=== PATIENT | female | born 1985 | race Caucasian/White ===

== ENCOUNTER 2017-08-07 21:32 | Observation (INO) ==
--- NOTE | 2017-08-07 22:05 | Emergency Department Note ---
START Narrative - START START: I examined this patient and my medical decision-making was reviewed with the Resident Physician. I agree with the documented findings, disposition and treatment plan as described except to the extent set forth below. 32 year old female presents to us from the for rule out MRSA abscess on her right mosque area. Nancy has essentially failed ouaptient therapy and will need admitted. She is tachycardic. Nancy has one SIRS criteria and likely meets sepsis criteria therefore we will start IVF and ABX and bloodwork
--- NOTE | 2017-08-07 22:12 | Emergency Department Note ---
Disposition Clinical Impression: Periorbital cellulitis of right eye Abscess of skin or subcutaneous tissue Qualifiers: Site of cutaneous abscess: face Qualified Code(s): L02.01 - Cutaneous abscess of face Disposition: Admitted As Inpatient Condition: Good Referrals: NONE,PCP [Primary Care Provider] - Forms: ED Satisfaction Letter Time of Disposition: 00:22 General Adult HPI - General Chief complaint: ED Skin/Abscess/Foreign Body Stated complaint: MRSA on my face Time Seen by Provider: 08/07/17 21:37 Source: patient Mode of arrival: ambulatory Limitations: no limitations Nursing Notes Reviewed: Yes Vital Signs Reviewed: Yes - History of Present Illness HPI Narrative: 32-year-old female presenting to the emergency department with chief complaint of skin infection. Patient was seen at urgent care on Wednesday and diagnosed with a MRSA skin infection and given Keflex. No further workup was completed according to the patient. No wound culture was completed. Patient has not taking the Keflex since then but states it is not getting better and now she has swelling behind her right ear. She states when she woke up this morning her right eye was swollen shut. Patient denies fevers but states she has been feeling overall not well. She has had some nausea today. Patient has never had abscesses or skin infection in the past. Pain Scale: 5 - Related Data Previous Rx's Medication Instructions Recorded Ketoprofen 75 mg PO 1-3XD #30 capsule 06/14/15 Benzonatate [Tessalon] 200 mg PO TID PRN #20 capsule 12/09/16 Ciprofloxacin [Cipro] 500 mg PO BID 7 Days tablet 12/09/16 Ibuprofen [Motrin] 800 mg PO Q8HR PRN #20 tablet 12/09/16 Phenazopyridine HCl [Pyridium] 200 mg PO TID 2 Days tab 12/09/16 Allergies Allergy/AdvReac Type Severity Reaction Status Date / Time sulfamethoxazole Allergy Hives Verified 08/07/17 21:35 [From Bactrim] trimethoprim [From Bactrim] Allergy Hives Verified 08/07/17 21:35 All systems ED: reviewed and negative except as stated. Constitutional: Denies: fever, chills Eyes: Reports: as per HPI ENT ED: Reports: as per HPI Cardiovascular: Denies: chest pain, palpitations Respiratory: Denies: cough, dyspnea, wheezes Gastrointestinal: Reports: nausea. Denies: abdominal pain, vomiting Genitourinary: Reports: as per HPI Musculoskeletal: Reports: as per HPI Integumentary: Reports: other (Quarter-sized fluctuant with mass noted over the right temporal region. No warmth to the area. No crepitus noted.) Neurological: Reports: as per HPI Psychiatric: Reports: as per HPI Endocrine: Reports: as per HPI Hematological/Lymphatic: Reports: as per HPI Allergic/Immunologic: Reports: as per HPI Past Medical History - Past Medical History Attestation: Yes The following information was validated with the patient. Medical history: Reports: no medical history Psychiatric history: Reports: depression - Social History Smoking Status: Current every day smoker Smokeless Tobacco Status: No Alcohol use: Reports: none Drug use: Reports: none, IV Drug Use, other Physical Exam - General General appearance: alert, in no apparent distress - Head Head exam: atraumatic, normocephalic - Eye Eye exam: Present: other (Mild redness and swelling noted around the right eye) - Cardiovascular Cardiovascular exam: Present: normal rhythm, tachycardia, normal heart sounds - Abdominal Exam Abdominal exam: Present: soft, Non-Tender, normal bowel sounds. Absent: distention, guarding, rebound - Extremities Exam Extremities exam: Present: normal inspection, full ROM - Neurological Exam Neurological exam: Present: alert, oriented X3 - Psychiatric Psychiatric exam: Present: normal affect, normal mood - Skin Skin exam: Present: warm, intact Course Course Narrative: 32-year-old female presenting to the emergency department with chief complaint of skin abscess over the right temporal region. Concern for periorbital cellulitis due to swelling and redness. Patient has failed outpatient therapy. We will obtain basic lab work and a sepsis workup along with providing the patient with vancomycin and Zosyn. We will obtain a CT of the area and to determine the extent of the infection. Disposition will be admission upon results. - Reevaluation(s) Reevaluation #1: Patient's lab work and radiology results have been completed. He will now completed bedside I&D of abscess. Vancomycin and Zosyn has been started. Patient's tachycardia is improving in the room. Other vital signs are all stable at this time. We spoke with the hospitalist Dr. Puckett who will accept the patient at this time. He would like us to add a serum test as well. Time: 00:21 Vital Signs Temperature 98.3 F 10/21/17 21:33 Pulse Rate 130 08/07/17 21:33 Respiratory Rate 16 08/07/17 21:33 Blood Pressure 160/93 08/07/17 21:33 O2 Sat by Pulse Oximetry 100 08/07/17 21:33 Temperature 98.3 F 08/07/17 21:33 Pulse Rate 105 08/08/17 00:01 Respiratory Rate 16 08/08/17 00:01 Blood Pressure 130/91 08/08/17 00:01 O2 Sat by Pulse Oximetry 99 08/08/17 00:01 Oxygen Delivery Oxygen Delivery Room Air Medical Decision Making - Lab Data Result diagrams: 08/07/17 22:43 08/07/17 22:43 Lab Results 08/07/17 08/07/17 08/07/17 Range/Units 22:43 22:43 22:43 WBC 8.2 (4.3-11.1) K/mcL RBC 5.11 H (3.82-4.97) M/mcL Hgb 14.2 (11.5-15.4) g/dL Hct 43.4 (35.3-44.9) % MCV 84.9 (83.0-100.0) fL MCH 27.8 L (28.0-33.3) pg MCHC 32.7 (31.6-35.5) g/dL RDW 13.4 (11.5-14.5) % Plt Count 339 (140-400) K/mcL MPV 8.8 L (9.4-12.4) fL Immature Gran % 0.4 (0-4) % Seg Neutrophils % 61.9 % Lymphocytes % 23.5 % Monocytes % 11.3 % Eosinophils % 1.8 % Basophils % 1.1 % Neutrophils # 5.1 (1.6-8.9) K/mcL Lymphocytes # 1.9 (0.6-4.6) K/mcL Monocytes # 0.9 (0.0-1.3) K/mcL Eosinophils # 0.2 (0.0-0.6) K/mcL Basophils # 0.1 (0.0-0.2) K/mcL ESR (0-15) mm/hr Sodium 139 (136-145) mEq/L Potassium 5.2 H (3.5-4.5) mEq/L Chloride 106 (98-109) mEq/L Carbon Dioxide 24 (19-29) mEq/L BUN 12 (7-20) mg/dL Creatinine 1.19 H (0.57-1.11) mg/dL Est GFR ( Amer) > 60 (> 60) Est GFR (Non-Af Amer) 53 L (> 60) BUN/Creatinine Ratio 10 (6-26) Glucose 100 H (70-99) mg/dL Calculated Osmolality 288 (280-300) Lactic Acid 2.0 (0.5-2.2) mmol/L Calcium 9.5 (8.6-10.8) mg/dL Total Bilirubin 0.8 (0.2-1.2) mg/dL Direct Bilirubin 0.3 (0.0-0.5) mg/dL Indirect Bilirubin 0.5 (0.0-1.2) mg/dL AST 52 H (5-34) Units/L ALT 76 H (0-55) Units/L Alkaline Phosphatase 82 (38-126) Units/L C-Reactive Protein 8 H (Less than 5) mg/L Serum Total Protein 9.0 H (6.0-8.3) g/dL Albumin 3.6 (3.5-5.0) g/dL Globulin 5.4 H (2.4-3.5) g/dL Albumin/Globulin Ratio 0.7 L (1.1-2.2) 08/07/17 Range/Units 22:43 WBC (4.3-11.1) K/mcL RBC (3.82-4.97) M/mcL Hgb (11.5-15.4) g/dL Hct (35.3-44.9) % MCV (83.0-100.0) fL MCH (28.0-33.3) pg MCHC (31.6-35.5) g/dL RDW (11.5-14.5) % Plt Count (140-400) K/mcL MPV (9.4-12.4) fL Immature Gran % (0-4) % Seg Neutrophils % % Lymphocytes % % Monocytes % % Eosinophils % % Basophils % % Neutrophils # (1.6-8.9) K/mcL Lymphocytes # (0.6-4.6) K/mcL Monocytes # (0.0-1.3) K/mcL Eosinophils # (0.0-0.6) K/mcL Basophils # (0.0-0.2) K/mcL ESR 64 H (0-15) mm/hr Sodium (136-145) mEq/L Potassium (3.5-4.5) mEq/L Chloride (98-109) mEq/L Carbon Dioxide (19-29) mEq/L BUN (7-20) mg/dL Creatinine (0.57-1.11) mg/dL Est GFR ( Amer) (> 60) Est GFR (Non-Af Amer) (> 60) BUN/Creatinine Ratio (6-26) Glucose (70-99) mg/dL Calculated Osmolality (280-300) Lactic Acid (0.5-2.2) mmol/L Calcium (8.6-10.8) mg/dL Total Bilirubin (0.2-1.2) mg/dL Direct Bilirubin (0.0-0.5) mg/dL Indirect Bilirubin (0.0-1.2) mg/dL AST (5-34) Units/L ALT (0-55) Units/L Alkaline Phosphatase (38-126) Units/L C-Reactive Protein (Less than 5) mg/L Serum Total Protein (6.0-8.3) g/dL Albumin (3.5-5.0) g/dL Globulin (2.4-3.5) g/dL Albumin/Globulin Ratio (1.1-2.2)
[2017-08-07] MEDS: Piperacillin/Tazobactam 3.375 GM in D5% in Water (Mini-Bag+) 100 ML IVPB ONE ×2 (22:16→22:48)
[2017-08-07] MEDS: 0.9 % Sodium Chloride 1,000 ML IVC ONE ×2 (22:17→22:48)
[2017-08-07] MEDS: Vancomycin 1,500 MG in D5% in Water 250 ML IVPB ONE ×2 (22:17→22:48)
[2017-08-07 22:58] LABS: Basophils # 0.1 K/mcL (0.0-0.2); Basophils % 1.1 %; Eosinophils # 0.2 K/mcL (0.0-0.6); Eosinophils % 1.8 %; Hematocrit 43.4 % (35.3-44.9); Hemoglobin 14.2 g/dL (11.5-15.4); Immature Granulocytes % 0.4 % (0-4); Lymphocytes # 1.9 K/mcL (0.6-4.6); Lymphocytes % 23.5 %; Mean Corpuscular HGB Conc 32.7 g/dL (31.6-35.5); Mean Corpuscular Hemoglobin 27.8 pg (28.0-33.3); Mean Corpuscular Volume 84.9 fL (83.0-100.0); Mean Platelet Volume 8.8 fL (9.4-12.4); Monocytes # 0.9 K/mcL (0.0-1.3); Monocytes % 11.3 %; Neutrophils # 5.1 K/mcL (1.6-8.9); Platelet Count 339 K/mcL (140-400); Red Blood Count 5.11 M/mcL (3.82-4.97); Red Cell Distribution Width 13.4 % (11.5-14.5); Segmented Neutrophils % 61.9 %
[2017-08-07] MEDS ORDERED: Nicotine 7 MG PATCH.TD24 TD STA (22:58)
[2017-08-07 23:12] LABS: Alanine Aminotransferase 76 Units/L (0-55); Albumin 3.6 g/dL (3.5-5.0); Albumin/Globulin Ratio 0.7 (1.1-2.2); Alkaline Phosphatase 82 Units/L (38-126); Aspartate Amino Transferase 52 Units/L (5-34); BUN/Creatinine Ratio 10 (6-26); Bilirubin,Direct 0.3 mg/dL (0.0-0.5); Bilirubin,Indirect 0.5 mg/dL (0.0-1.2); Bilirubin,Total 0.8 mg/dL (0.2-1.2); Blood Urea Nitrogen 12 mg/dL (7-20); Calcium 9.5 mg/dL (8.6-10.8); Carbon Dioxide 24 mEq/L (19-29); Chloride 106 mEq/L (98-109); Globulin 5.4 g/dL (2.4-3.5); Glucose 100 mg/dL (70-99); Osmolality,Calculated 288 (280-300); Sodium 139 mEq/L (136-145); eGFR For African Americans > 60 (> 60); eGFR For Non-African Americans 53 (> 60)
[2017-08-07 23:13] LABS: Potassium 5.2 mEq/L (3.5-4.5)
[2017-08-07 23:31] LABS: C-Reactive Protein 8 mg/L (Less than 5)
[2017-08-08] MEDS ORDERED: Lidocaine -MPF 1% 2 ML VIAL INFILT ONE (00:05)
[2017-08-08] MEDS ORDERED: *HR* Morphine 2 MG/ML SYRINGE IVP ONE (00:18)
--- NOTE | 2017-08-08 00:31 | Internal Med History&Physical ---
<Jesús Salmon - Last Filed: 08/08/17 02:19> Date of Encounter: 08/08/17 Time of Encounter: 00:31 Assessment and Plan (1) Abscess of skin or subcutaneous tissue Current visit: Yes Status: Acute CT face revealed superficial subcutaneous abscess with surrounding cellulitis overlying the right temporalis fossa. Patient s/p bedside I&D in the ED Blood and wound cultures pending Started on empiric Vanc and Zosyn (Patient is allergic to Bactrim) De-escalate antibiotics once cultures resulted Contact precautions Ibuprofen/ Tylenol prn Qualifiers: Site of cutaneous abscess: face Qualified Code(s): L02.01 - Cutaneous abscess of face (2) Periorbital cellulitis of right eye Current visit: Yes Status: Acute Afebrile, no leukocytosis, no vision changes ESR 64, CRP 8, Lactic acid 2.0, repeat lactic acid pending Continue antibiotics Continue to monitor (3) Hyperkalemia Current visit: Yes Status: Acute K 5.2 Continue to monitor (4) Tobacco dependence Current visit: Yes Status: Chronic Tobacco cessation discussed Nicotine patch ordered (5) Hepatitis C Current visit: No Status: Chronic Hep c secondary to remote IVDU Mildly elevated LFTs Continue to monitor Qualifiers: Viral hepatitis chronicity: chronic Hepatic coma status: without hepatic coma Qualified Code(s): B18.2 - Chronic viral hepatitis C (6) Obesity (BMI 30-39.9) Current visit: Yes Status: Chronic Discussed diet modification and exercise (7) DVT prophylaxis Current visit: Yes Status: Acute SCDs, encourage ambulation Internal Medicine - H&P: HPI Chief complaint: Skin infection Admitted From: Home Plans for Post Hospital Care: Home History of present illness: Ms. Davalos is a 32 year old female with a PMH of Hepatitis C, tobacco dependence, and remote IVDU that presented after she was evaluated at an urgent care center 5 days ago for a skin infection on her face that has been getting worse despite taking Cipro 500mg PO TID for the past 3 days. She reports trying to "pop the zit" a few days ago without much relief. She reports waking up this morning with swelling behind her right ear and her right eye swollen shut. She reports associated subjective fevers, facial pain, ear feeling plugged, nausea, fatigue, and family member with recurrent staph infections. She has been using Ibuprofen and ice packs at home with considerable decrease in swelling. Patient denies vision changes, chills, CP, SOB, abd pain, weight loss or gain, difficulty chewing, ingrown hairs, animal bites, or prior abscesses/ skin infection in the past. In the ED, CT face revealed superficial subcutaneous abscess with surrounding cellulitis overlying the right temporalis fossa. Patient underwent bedside I&D of abscess and was started on empiric Vamc and Zosyn. Wound cultures collected. Past Med Surg Social Fam HX - Past Medical History Medical history: other (Hepatitis C, tobacco dependence) Psychiatric history: depression - Past Surgical History Surgical History: other (Rhinoplasty, tonsillectomy, hand) - Social History Smoking Status: Current every day smoker Smokeless Tobacco Status: No Alcohol use: none Drug use: none, IV Drug Use (remote), other Current living situation: Home, With Family Activity Level: Independent ambulation Recent Out of Country Travel Within the Last 8 Weeks: No Exposure or Possible Exposure to Illness During Travel: No - Family History Grandmother Hx Family Cardiac Disorders: Yes Hx Family Endocrine Disorder: Yes (DM) Grandfather Hx Family Cardiac Disorders: Yes Hx Family Endocrine Disorder: Yes (DM) Internal Medicine - H&P: Meds Ketoprofen 75 mg PO 1-3XD #30 capsule 06/14/15 [Rx] Benzonatate [Tessalon] 200 mg PO TID PRN #20 capsule 12/09/16 [Rx] Ciprofloxacin [Cipro] 500 mg PO BID 7 Days tablet 12/09/16 [Rx] Ibuprofen [Motrin] 800 mg PO Q8HR PRN #20 tablet 12/09/16 [Rx] Phenazopyridine HCl [Pyridium] 200 mg PO TID 2 Days tab 12/09/16 [Rx] 3 Allergy/AdvReac Type Severity Reaction Status Date / Time sulfamethoxazole Allergy Hives Verified 08/07/17 21:35 [From Bactrim] trimethoprim [From Bactrim] Allergy Hives Verified 08/07/17 21:35 All Systems PM: A 10-system review of systems was performed and is negative for pertinent findings except as documented above in the HPI. - Constitutional Constitutional: fatigue, fever(s), no anorexia, no chills, no weight gain, no weight loss - EENT Eyes: irritation, no blurry vision, no change in vision, no diplopia, no discharge, no loss of vision, no photophobia, no spots in vision, no other visual disturbances Nose, mouth and throat: facial pain, no dental pain, no mouth lesions, no nasal congestion, no neck pain, no post-nasal drip, no sinus pressure, no sore throat - Cardiovascular Cardiovascular ROS IM: palpitations, no chest pain - Respiratory Respiratory: no cough, no dyspnea, no excessive phlegm production, no change in phlegm color - Gastrointestinal Gastrointestinal: nausea, no abdominal pain, no constipation, no diarrhea, no vomiting - Genitourinary Genitourinary: no dysuria, no urinary frequency, no urinary urgency Menstruation: menses 8 or > days - Musculoskeletal Musculoskeletal ROS IM: myalgias, no back pain, no numbness, no tingling - Integumentary Integumentary IM: erythema, new lesions, non-healing lesions, rash, sores - Neurological Neurological ROS: no confusion, no loss of vision, no numbness, no weakness - Psychiatric Psychiatric: anxiety, no depression - Endocrine Endocrine IM: no polydipsia, no polyphagia, no polyuria - Constitutional Vitals: Temp Pulse Resp BP Pulse Ox 98.3 F 105 16 130/91 99 08/07/17 21:33 08/08/17 00:01 08/08/17 00:01 08/08/17 00:01 08/08/17 00:01 General appearance: Present: cooperative, A&O X 3, pleasant, obese, answers questions appropriately - Head Head exam: Present: normocephalic - Expanded Head Exam Head exam expanded: Present: abrasion (1cm incision right faith at hairline with quarter-sized surounding erythema and right post-auricular lymphadenopathy) , laceration, tenderness of temporal artery - Eye Eye exam: Present: EOMI, periorbital swelling (mild), periorbital tenderness, PERRL, conjuntiva pink, sclera anicteric. Absent: conjunctival injection - ENT ENT exam: Present: mucous membranes moist, normal oropharynx - Expanded ENT Exam Ear exam: Absent: external canal tenderness - Neck Neck exam general surgery: Present: full ROM, lymphadenopathy (post auricular lymphadenopathy), supple, trachea midline. Absent: tenderness - Respiratory Respiratory exam: Present: CTAB. Absent: wheezes - Cardiovascular Cardiovascular exam: Present: +S1, +S2, tachycardia - GI/Abdominal GI/Abdominal exam: Present: normal bowel sounds, soft. Absent: guarding, rebound, tenderness - Extremities Exam Extremities exam: Present: normal capillary refill, normal inspection, warm. Absent: pedal edema - Incison Incision: Present: red, intact, erythema, serosanguinous, approximated. Absent : purulent - Back Exam Back exam: Present: normal inspection. Absent: paraspinal tenderness, tenderness - Neurological Exam Neurological exam: Present: alert, oriented X3, no focal deficits. Absent: motor sensory deficit, speech deficit - Psychiatric Psychiatric exam: Present: normal affect, normal mood - Skin Skin exam: Present: erythema (1cm incision right faith at hairline with quarter -sized surounding erythema and right post-auricular lymphadenopathy) Internal Med - H&P Results - Labs CBC & Chem 7: 08/07/17 22:43 08/07/17 22:43 - Impressions Impressions Face CT 08/07/17 21:54 IMPRESSION: Superficial subcutaneous abscess with surrounding cellulitis overlying the right temporalis fossa. No radiopaque foreign body. D/ / Frankie Johnson MD / Frankie Johnson MD Interpreting Provider: Frankie Johnson MD <Irving Puckett - Last Filed: 08/08/17 02:43> Date of Encounter: 08/08/17 Internal Medicine - H&P: HPI History of present illness: Ms. Davalos is a 32 year old female All Systems PM: A 10-system review of systems was performed and is negative for pertinent findings except as documented above in the HPI. - Constitutional Vitals: Temp Pulse Resp BP Pulse Ox 98.4 F 96 16 150/103 100 08/08/17 01:00 08/08/17 01:00 08/08/17 01:00 08/08/17 01:00 08/08/17 01:00 Internal Med - H&P Results - Labs CBC & Chem 7: 08/08/17 02:20 08/07/17 22:43 Labs: Short CBC 08/08/17 Range/Units 02:20 WBC 7.8 (4.3-11.1) K/mcL Hgb 12.9 (11.5-15.4) g/dL Hct 38.8 (35.3-44.9) % Plt Count 285 (140-400) K/mcL Neutrophils # 4.5 (1.6-8.9) K/mcL - Attending Attestation I have seen and examined the patient independently. I have discussed with resident Dr Salmon regarding the management plan. Agree with the documentation. Patient admitted for abscess/cellulitis on the right temporal area. Failed outpatient treatment. I/D has been done in ER. We will continue IV antibiotic and a follow-up blood and wound culture.
[2017-08-08 01:01] VITALS: BP 150/103
[2017-08-08] MEDS ORDERED: Acetaminophen 325 MG TABLET PO PRN (01:17)
[2017-08-08] MEDS ORDERED: Naloxone 0.4 MG/ML INJ IVP PRN (01:17)
[2017-08-08] MEDS ORDERED: Ondansetron 4 MG/2 ML VIAL IVP PRN (01:17)
[2017-08-08] MEDS ORDERED: 0.9 % Sodium Chloride 1,000 ML IVC SCH (01:30)
[2017-08-08] MEDS ORDERED: Vancomycin (wt based) 1,000 MG VIAL IVPB SCH (02:00)
[2017-08-08 02:27] LABS: Basophils # 0.1 K/mcL (0.0-0.2); Basophils % 1.2 %; Eosinophils # 0.2 K/mcL (0.0-0.6); Eosinophils % 2.1 %; Hematocrit 38.8 % (35.3-44.9); Hemoglobin 12.9 g/dL (11.5-15.4); Immature Granulocytes % 0.4 % (0-4); Lymphocytes # 2.1 K/mcL (0.6-4.6); Lymphocytes % 26.9 %; Mean Corpuscular HGB Conc 33.2 g/dL (31.6-35.5); Mean Corpuscular Volume 84.2 fL (83.0-100.0); Mean Platelet Volume 8.7 fL (9.4-12.4); Monocytes # 0.9 K/mcL (0.0-1.3); Monocytes % 11.8 %; Neutrophils # 4.5 K/mcL (1.6-8.9); Platelet Count 285 K/mcL (140-400); Red Blood Count 4.61 M/mcL (3.82-4.97); Red Cell Distribution Width 13.3 % (11.5-14.5); Segmented Neutrophils % 57.6 %
[2017-08-08 02:40] LABS: Alanine Aminotransferase 65 Units/L (0-55); Albumin 3.2 g/dL (3.5-5.0); Albumin/Globulin Ratio 0.7 (1.1-2.2); Alkaline Phosphatase 73 Units/L (38-126); Aspartate Amino Transferase 39 Units/L (5-34); BUN/Creatinine Ratio 11 (6-26); Bilirubin,Total 0.7 mg/dL (0.2-1.2); Blood Urea Nitrogen 11 mg/dL (7-20); Calcium 8.8 mg/dL (8.6-10.8); Carbon Dioxide 24 mEq/L (19-29); Chloride 109 mEq/L (98-109); Globulin 4.4 g/dL (2.4-3.5); Glucose 96 mg/dL (70-99); Osmolality,Calculated 287 (280-300); Sodium 139 mEq/L (136-145); Total Protein 7.6 g/dL (6.0-8.3); eGFR For African Americans > 60 (> 60); eGFR For Non-African Americans > 60 (> 60)
[2017-08-08] MEDS ORDERED: Aminoglycoside Consult 1 EACH MC ONE (04:28)
--- NOTE | 2017-08-08 05:05 | Discharge Summary ---
Date of Encounter: 08/08/17 Time of Encounter: 04:20 - Discharge Diagnosis (1) Abscess of skin or subcutaneous tissue Priority: Primary Status: Acute Qualifiers: Site of cutaneous abscess: face Qualified Code(s): L02.01 - Cutaneous abscess of face (2) Periorbital cellulitis of right eye Priority: Primary Status: Acute (3) Hyperkalemia Priority: Primary Status: Acute (4) Tobacco dependence Priority: Secondary Status: Chronic (5) Hepatitis C Priority: Secondary Status: Chronic Qualifiers: Viral hepatitis chronicity: chronic Hepatic coma status: without hepatic coma Qualified Code(s): B18.2 - Chronic viral hepatitis C (6) Obesity (BMI 30-39.9) Priority: Secondary Status: Chronic (7) DVT prophylaxis Priority: Primary Status: Acute - Discharge Medications Home Medications: Ketoprofen 75 mg PO 1-3XD #30 capsule 06/14/15 [Rx] Benzonatate [Tessalon] 200 mg PO TID PRN #20 capsule 12/09/16 [Rx] Ciprofloxacin [Cipro] 500 mg PO BID 7 Days tablet 12/09/16 [Rx] Ibuprofen [Motrin] 800 mg PO Q8HR PRN #20 tablet 12/09/16 [Rx] Phenazopyridine HCl [Pyridium] 200 mg PO TID 2 Days tab 12/09/16 [Rx] Allergies/Adverse Reactions: 3 Allergy/AdvReac Type Severity Reaction Status Date / Time sulfamethoxazole Allergy Hives Verified 08/07/17 21:35 [From Bactrim] trimethoprim [From Bactrim] Allergy Hives Verified 08/07/17 21:35 Date of admission: 08/08/17 00:27 Primary care physician: PCP NONE Discharging clinician: Jesús Salmon Anticipated date of discharge: 08/08/17 - Patient Status Disposition: Left Against Medical Advice Condition: Fair Functional capacity at discharge: independent ambulation Overall status at discharge: patient is not back to baseline - Discharge Instructions Follow Up With: NONE,PCP [Primary Care Provider] - - Diet and Activity Diet: regular diet Hospital course: Ms. Davalos is a 32 year old female with a PMH of Hepatitis C, tobacco dependence, and remote IVDU that presented after she was evaluated at an urgent care center 5 days ago for a skin infection on her face that has been getting worse despite taking Cipro 500mg PO TID for the past 3 days. She reports trying to "pop the zit" a few days ago without much relief. She reports waking up this morning with swelling behind her right ear and her right eye swollen shut. She reports associated subjective fevers, facial pain, ear feeling plugged, nausea, fatigue, and family member with recurrent staph infections. She has been using Ibuprofen and ice packs at home with considerable decrease in swelling. Patient denies vision changes, chills, CP, SOB, abd pain, weight loss or gain, difficulty chewing, ingrown hairs, animal bites, or prior abscesses/ skin infection in the past. In the ED, CT face revealed superficial subcutaneous abscess with surrounding cellulitis overlying the right temporalis fossa. Patient underwent bedside I&D of abscess and was started on empiric Vamc and Zosyn. Wound and blood cultures were collected. Patient left AMA shortly after admission due to family emergency stating "my old man got locked up". Risks of acutely worsening due to location of cellulitis, potential loss of eye sight, and potential without proper treatment and antibiotics were discussed with the patient. Patient understood and voiced understanding. She signed out AMA shortly thereafter. Time spent discussing smoking cessation with patient: 3 to 10 minutes - Time Spent with Patient Total time spent providing and/or coordinating discharge services: Less than 30 minutes - Constitutional Vitals: Temp Pulse Resp BP Pulse Ox 98.4 F 96 16 150/103 100 08/08/17 01:00 08/08/17 01:00 08/08/17 01:00 08/08/17 01:00 08/08/17 01:00 Exam: General appearance: Present: cooperative, A&O X 3, pleasant, obese, answers questions appropriately - Head Head exam: Present: normocephalic - Expanded Head Exam Head exam expanded: Present: abrasion (1cm incision right taoism at hairline with quarter-sized surounding erythema and right post-auricular lymphadenopathy) , laceration, tenderness of temporal artery - Eye Eye exam: Present: EOMI, periorbital swelling (mild), periorbital tenderness, PERRL, conjuntiva pink, sclera anicteric. Absent: conjunctival injection - ENT ENT exam: Present: mucous membranes moist, normal oropharynx - Expanded ENT Exam Ear exam: Absent: external canal tenderness - Neck Neck exam general surgery: Present: full ROM, lymphadenopathy (post auricular lymphadenopathy), supple, trachea midline. Absent: tenderness - Respiratory Respiratory exam: Present: CTAB. Absent: wheezes - Cardiovascular Cardiovascular exam: Present: +S1, +S2, tachycardia - GI/Abdominal GI/Abdominal exam: Present: normal bowel sounds, soft. Absent: guarding, rebound, tenderness - Extremities Exam Extremities exam: Present: normal capillary refill, normal inspection, warm. Absent: pedal edema - Incison Incision: Present: red, intact, erythema, serosanguinous, approximated. Absent : purulent - Back Exam Back exam: Present: normal inspection. Absent: paraspinal tenderness, tenderness - Neurological Exam Neurological exam: Present: alert, oriented X3, no focal deficits. Absent: motor sensory deficit, speech deficit - Psychiatric Psychiatric exam: Present: normal affect, normal mood - Skin Skin exam: Present: erythema (1cm incision right taoism at hairline with quarter -sized surounding erythema and right post-auricular lymphadenopathy)
[2017-08-08] MEDS ORDERED: Famotidine 20 MG/2 ML VIAL IVP SCH (06:00)
[2017-08-08] MEDS ORDERED: Ibuprofen 400 MG TABLET PO SCH (06:00)
[2017-08-08] MEDS ORDERED: Piperacillin/Tazobactam 3.375 GM in D5% in Water (Mini-Bag+) 100 ML IVPB SCH (08:00)
[2017-08-08] MEDS ORDERED: Nicotine 7 MG PATCH.TD24 TD SCH (09:00)
[2017-08-08] MEDS ORDERED: Vancomycin 1,500 MG in D5% in Water 250 ML IVPB SCH (11:00)
[2017-08-08] MEDS ORDERED: Vancomycin 1,000 MG in D5% in Water 250 ML IVPB SCH (23:00)
--- NOTE | 2017-08-11 10:55 | Event Note ---
Date of Encounter: 08/10/17 Time of Encounter: 18:00 Spoke to patient concerning culture results, positive for MRSA. She had left AMA and was not on any ATB. She agreed to treatment and requested [facility] . I attempted to call prescription for Doxycycline (which is sensitive) to [facility] however was closed. I did call prescription on 08/11/2017 at 10: 30 am .
== END 2017-08-08 04:29 | disposition left against medical advice (07) ==
LOC: EMEROO 21:32 → 3ANU 21:32
PROVIDERS: ADMIT Internal Medicine; ATTEND Internal Medicine

== ENCOUNTER 2018-07-13 12:26 | Inpatient (IN) ==
[2018-07-13] MEDS ORDERED: Isovue-370 500 ML INFUS..BTL IV ONE (13:08)
[2018-07-13] MEDS ORDERED: Clindamycin 600 MG/50 ML 600 MG/50 ML IV.SOLN IVPB ONE (13:10)
[2018-07-13] MEDS ORDERED: Piperacillin/Tazobactam 3.375 GM in 0.9 % Sodium Chloride Mini Bag 100 ML IVPB ONE (13:10)
[2018-07-13] MEDS ORDERED: Clindamycin 300 MG in D5% in Water 50 ML IVPB ONE ×2 (13:11→14:15)
[2018-07-13] MEDS ORDERED: Ketorolac 30 MG/ML VIAL IVP ONE (13:12)
[2018-07-13] MEDS: 0.9 % Sodium Chloride 1,000 ML IVC SCH ×4 (13:24→23:20)
[2018-07-13] MEDS ORDERED: Clindamycin 300 MG/50 ML 300 MG/50 ML IV.SOLN IVPB ONE (14:00)
--- NOTE | 2018-07-13 14:16 | Emergency Department Note ---
Disposition Clinical Impression: Abscess Disposition: Admitted As Inpatient Condition: Fair General Adult HPI - General Chief complaint: ED Wound/Laceration Stated complaint: Left leg spider bite Time Seen by Provider: 07/13/18 12:37 Source: patient Limitations: no limitations Nursing Notes Reviewed: Yes Vital Signs Reviewed: Yes - History of Present Illness HPI Narrative: This is a 33-year-old female with a history of IV drug abuse who presents with concern for an abscess with a necrotic center on the left eye. She has no fever or chills but is significantly tachycardic at triage. She admits that she is currently on methadone. She admits that she had a similar finding on an area below the left knee But the area that she has now started 3 days ago and is progressively worsened. She is mostly concerned that the rapid proliferation of the induration. There is no crepitus on exam on arrival. General: No acute distress HEENT: Pupils equal and reactive to light, extraoccular muscle movement is normal, TMS are clear bilaterally. Heart: RRR, No murmor rub or gallop Lungs: lungs clear, no wheezing, rales or ronchi. ABD: SNT, no focal areas or tenderness, no guarding or rebound tenderness. Extremities: There is significant induration necrotic lesion over the left thigh without findings of crepitus. Neuro: CN 2-12 in tact, no focal deficit. strength 5/5. Medical decision making Findings consistent with abscess to the left lower extremity. We will not emergently consult surgery for possible debridement as this could represent early abscess. There is no actual findings of abscess on advanced imaging at this time. White blood cell count is mildly elevated at 12,000. CT scan shows no discernible abscess. The patient does have elevated reactive markers including sedimentation rate and CRP. Pñea start broad-spectrum antibiotics including vancomycin, clindamycin, Zosyn. Cultures were sent. The patient be admitted for further management. The patient did have significant tachycardia which improved with IV fluids. I spent greater than 35 minutes of critical care time resuscitating this acutely ill patient suffering from sepsis. This was excluding billable procedures. A 12 point review systems is completed. Pertinent positives are discussed in history of present illness. Pain Scale: 5 - Related Data Allergies Allergy/AdvReac Type Severity Reaction Status Date / Time sulfamethoxazole Allergy Hives Verified 01/05/18 22:01 [From Bactrim] trimethoprim [From Bactrim] Allergy Hives Verified 01/05/18 22:01 Past Medical History - Past Medical History Medical history: Reports: no medical history Surgical history: Reports: other (Rhinoplasty, tonsillectomy, hand) Psychiatric history: Reports: depression - Social History Smoking Status: Current every day smoker Smokeless Tobacco Status: No Alcohol use: Reports: none Drug use: Reports: none, IV Drug Use, other Physical Exam - General Limitations: no limitations General appearance: alert, in no apparent distress Course Vital Signs Temperature 99.5 F 07/13/18 12:40 Pulse Rate 151 07/13/18 12:40 Respiratory Rate 18 07/13/18 12:40 Blood Pressure 132/76 07/13/18 12:40 O2 Sat by Pulse Oximetry 96 07/13/18 12:40 Temperature 99.5 F 07/13/18 12:40 Pulse Rate 96 07/13/18 16:19 Respiratory Rate 18 07/13/18 16:19 Blood Pressure 106/82 07/13/18 16:19 O2 Sat by Pulse Oximetry 99 07/13/18 16:19 Oxygen Delivery Oxygen Delivery Room Air Medical Decision Making - MDM Narrative Medical decision making narrative: ekg shows sinus tachycardia, normal axis, normal intervals, abnormal ECG with tachycardia - Lab Data Result diagrams: 07/13/18 15:59 07/13/18 12:56 Lab Results 07/13/18 07/13/18 07/13/18 Range/Units 12:56 12:56 12:56 WBC (4.3-11.1) K/mcL RBC (3.82-4.97) M/mcL Hgb (11.5-15.4) g/dL Hct (35.3-44.9) % MCV (83.0-100.0) fL MCH (28.0-33.3) pg MCHC (31.6-35.5) g/dL RDW (11.5-14.5) % Plt Count (140-400) K/mcL MPV (9.4-12.4) fL Immature Gran % (0-4) % Seg Neutrophils % % Lymphocytes % % Monocytes % % Eosinophils % % Basophils % % Neutrophils # (1.6-8.9) K/mcL Lymphocytes # (0.6-4.6) K/mcL Monocytes # (0.0-1.3) K/mcL Eosinophils # (0.0-0.6) K/mcL Basophils # (0.0-0.2) K/mcL ESR 98 H (0-15) mm/hr Sodium Cancelled Potassium Cancelled Chloride Cancelled Carbon Dioxide Cancelled BUN Cancelled Creatinine Cancelled Est GFR ( Amer) Cancelled Est GFR (Non-Af Amer) Cancelled BUN/Creatinine Ratio Cancelled Glucose Cancelled Calculated Osmolality Cancelled Lactic Acid (0.5-2.2) mmol/L Calcium Cancelled Total Bilirubin Cancelled AST Cancelled ALT Cancelled Alkaline Phosphatase Cancelled C-Reactive Protein 100 H (Less than 10) mg/L Serum Total Protein Cancelled Albumin Cancelled Globulin Cancelled Albumin/Globulin Ratio Cancelled Specimen Rejected Hemolyzed 07/13/18 07/13/18 07/13/18 Range/Units 12:56 14:03 15:59 WBC 12.1 H (4.3-11.1) K/mcL RBC 4.04 (3.82-4.97) M/mcL Hgb 11.2 L (11.5-15.4) g/dL Hct 33.7 L (35.3-44.9) % MCV 83.4 (83.0-100.0) fL MCH 27.7 L (28.0-33.3) pg MCHC 33.2 (31.6-35.5) g/dL RDW 13.2 (11.5-14.5) % Plt Count 230 (140-400) K/mcL MPV 9.0 L (9.4-12.4) fL Immature Gran % 0.5 (0-4) % Seg Neutrophils % 71.9 % Lymphocytes % 16.3 % Monocytes % 9.5 % Eosinophils % 1.1 % Basophils % 0.7 % Neutrophils # 8.7 (1.6-8.9) K/mcL Lymphocytes # 2.0 (0.6-4.6) K/mcL Monocytes # 1.2 (0.0-1.3) K/mcL Eosinophils # 0.1 (0.0-0.6) K/mcL Basophils # 0.1 (0.0-0.2) K/mcL ESR (0-15) mm/hr Sodium 129 L Potassium 4.3 Chloride 99 Carbon Dioxide 21 L BUN 19 Creatinine 1.16 Est GFR ( Amer) > 60 Est GFR (Non-Af Amer) 54 L BUN/Creatinine Ratio 16 Glucose 130 H Calculated Osmolality 272 L Lactic Acid 0.6 (0.5-2.2) mmol/L Calcium 9.3 Total Bilirubin 0.9 AST 50 H ALT 60 H Alkaline Phosphatase 132 H C-Reactive Protein (Less than 10) mg/L Serum Total Protein 8.4 Albumin 3.8 Globulin 4.6 H Albumin/Globulin Ratio 0.8 L Specimen Rejected 07/13/18 Range/Units 16:17 WBC (4.3-11.1) K/mcL RBC (3.82-4.97) M/mcL Hgb (11.5-15.4) g/dL Hct (35.3-44.9) % MCV (83.0-100.0) fL MCH (28.0-33.3) pg MCHC (31.6-35.5) g/dL RDW (11.5-14.5) % Plt Count (140-400) K/mcL MPV (9.4-12.4) fL Immature Gran % (0-4) % Seg Neutrophils % % Lymphocytes % % Monocytes % % Eosinophils % % Basophils % % Neutrophils # (1.6-8.9) K/mcL Lymphocytes # (0.6-4.6) K/mcL Monocytes # (0.0-1.3) K/mcL Eosinophils # (0.0-0.6) K/mcL Basophils # (0.0-0.2) K/mcL ESR (0-15) mm/hr Sodium Potassium Chloride Carbon Dioxide BUN Creatinine Est GFR ( Amer) Est GFR (Non-Af Amer) BUN/Creatinine Ratio Glucose Calculated Osmolality Lactic Acid (0.5-2.2) mmol/L Calcium Total Bilirubin AST ALT Alkaline Phosphatase C-Reactive Protein (Less than 10) mg/L Serum Total Protein Albumin Globulin Albumin/Globulin Ratio Specimen Rejected Hemolyzed
[2018-07-13 16:24] LABS: Basophils # 0.1 K/mcL (0.0-0.2); Basophils % 0.7 %; Eosinophils # 0.1 K/mcL (0.0-0.6); Eosinophils % 1.1 %; Hematocrit 33.7 % (35.3-44.9); Hemoglobin 11.2 g/dL (11.5-15.4); Immature Granulocytes % 0.5 % (0-4); Lymphocytes % 16.3 %; Mean Corpuscular HGB Conc 33.2 g/dL (31.6-35.5); Mean Corpuscular Hemoglobin 27.7 pg (28.0-33.3); Mean Corpuscular Volume 83.4 fL (83.0-100.0); Monocytes # 1.2 K/mcL (0.0-1.3); Monocytes % 9.5 %; Neutrophils # 8.7 K/mcL (1.6-8.9); Platelet Count 230 K/mcL (140-400); Red Blood Count 4.04 M/mcL (3.82-4.97); Red Cell Distribution Width 13.2 % (11.5-14.5); Segmented Neutrophils % 71.9 %
[2018-07-13 16:55] LABS: Alanine Aminotransferase 60 Units/L (7-52); Albumin 3.8 g/dL (3.5-5.7); Albumin/Globulin Ratio 0.8 (1.1-2.2); Alkaline Phosphatase 132 Units/L (34-104); Aspartate Amino Transferase 50 Units/L (13-39); BUN/Creatinine Ratio 16 (6-26); Bilirubin,Total 0.9 mg/dL (0.3-1.0); Blood Urea Nitrogen 19 mg/dL (6-20); Calcium 9.3 mg/dL (8.6-10.3); Carbon Dioxide 21 mEq/L (23-29); Chloride 99 mEq/L (98-107); Globulin 4.6 g/dL (2.4-3.5); Glucose 130 mg/dL (70-105); Osmolality,Calculated 272 (280-300); Potassium 4.3 mEq/L (3.5-5.1); Sodium 129 mEq/L (136-145); Total Protein 8.4 g/dL (6.4-8.9); eGFR For Non-African Americans 54 (> 60)
[2018-07-13] MEDS ORDERED: Naloxone 0.4 MG/ML INJ IVP PRN (20:39)
--- NOTE | 2018-07-13 20:40 | Internal Med History&Physical ---
Date of Encounter: 07/13/18 Time of Encounter: 17:00 Internal Medicine - H&P: HPI Chief complaint: Left leg cellulitis/abscess History of present illness: Patient is a 33-year-old female with past medical history significant for IV drug abuse who presents to the ER on 07/13/18 due to left thigh cellulitis/ abscess. Patient reports that she noticed approximately 2 weeks ago a black pimple on her left thigh which she tried to pop. After which, patient noted that the area became irritated and tender so she went to urgent care where she was given an antibiotic which she does not recall the name or duration. Patient reported no improvement however and noticed that the area became more erythematous and painful so she decided to come to the ER for evaluation. In the ER, patient was found to have leukocytosis with white blood cell count of 12.1. Lower extremities CT was done which showed focal skin thickening and subcutaneous fat stranding in the anterior mid-thigh, most compatible with cellulitis; no soft tissue gas or evidence of drainable fluid collection/ abscess. Patient was started on IV Zosyn and vancomycin in the ER and will be admitted to the medical surgical floor for further management. Past Med Surg Social Fam HX - Past Medical History Medical history: no medical history Additional medical history: on methadone Psychiatric history: depression - Past Surgical History Surgical History: other (Rhinoplasty, tonsillectomy, hand) Additional surgical history: R hand,. throat and nose - Social History Smoking Status: Current every day smoker Smokeless Tobacco Status: No Alcohol use: none Drug use: none, IV Drug Use, other - Family History Grandmother Hx Family Cardiac Disorders: Yes Hx Family Endocrine Disorder: Yes (DM) Grandfather Hx Family Cardiac Disorders: Yes Hx Family Endocrine Disorder: Yes (DM) Internal Medicine - H&P: Meds 3 Allergy/AdvReac Type Severity Reaction Status Date / Time sulfamethoxazole Allergy Hives Verified 01/05/18 22:01 [From Bactrim] trimethoprim [From Bactrim] Allergy Hives Verified 01/05/18 22:01 All Systems PM: A 10-system review of systems was performed and is negative for pertinent findings except as documented above in the HPI. - Constitutional Vitals: Temp Pulse Resp BP Pulse Ox 97.7 F 83 16 111/80 99 07/13/18 18:49 07/13/18 18:49 07/13/18 18:49 07/13/18 18:49 07/13/18 18:49 General appearance: Present: A&O X 3, no acute distress Exam: As below - Eye Eye exam: Present: normal appearance - ENT ENT exam: Present: mucous membranes moist - Respiratory Respiratory exam: Present: CTAB. Absent: accessory muscle use, rales, rhonchi, wheezes - Cardiovascular Cardiovascular exam: Present: RRR, +S1, +S2. Absent: diastolic murmur, gallop, rubs, systolic murmur - GI/Abdominal GI/Abdominal exam: Present: normal bowel sounds, soft, no peritoneal signs. Absent: distended, tenderness - Extremities Exam Extremities exam: Absent: pedal edema - Psychiatric Psychiatric exam: Present: normal mood - Skin Skin exam: Present: erythema (Patient with large left thigh erythematous and indurated area) Internal Med - H&P Results - Labs CBC & Chem 7: 07/14/18 05:39 07/14/18 05:39 - Assessment and plan (1) Abscess Current Visit: Yes Status: Acute Assessment and plan: Patient with large left thigh erythematous and indurated area Continue IV vancomycin/IV Zosyn NPO at midnight and general surgery to see in the morning (2) Elevated transaminase level Current Visit: Yes Status: Acute Assessment and plan: AST and ALT slightly elevated Will continue to monitor (3) History of intravenous drug abuse Current Visit: Yes Status: Acute Assessment and plan: Will be careful with pain narcotics given history of IV drug abuse - Time Spent With Patient Total time spent is greater than 50% in coordination of care (as documented) at patient's floor/unit and/or counseling patient:
[2018-07-13] MEDS ORDERED: 0.9 % Sodium Chloride 1,000 ML IVC SCH (20:45)
[2018-07-13] MEDS: Piperacillin/Tazobactam 3.375 GM in 0.9 % Sodium Chloride Mini Bag 100 ML IVPB SCH (23:20)
[2018-07-14 06:04] LABS: Basophils # 0.1 K/mcL (0.0-0.2); Eosinophils # 0.4 K/mcL (0.0-0.6); Eosinophils % 5.4 %; Hematocrit 34.2 % (35.3-44.9); Hemoglobin 10.9 g/dL (11.5-15.4); Immature Granulocytes % 0.5 % (0-4); Mean Corpuscular HGB Conc 31.9 g/dL (31.6-35.5); Mean Corpuscular Hemoglobin 27.1 pg (28.0-33.3); Mean Corpuscular Volume 85.1 fL (83.0-100.0); Mean Platelet Volume 9.1 fL (9.4-12.4); Monocytes # 0.8 K/mcL (0.0-1.3); Neutrophils # 4.8 K/mcL (1.6-8.9); Platelet Count 199 K/mcL (140-400); Red Blood Count 4.02 M/mcL (3.82-4.97); Red Cell Distribution Width 13.2 % (11.5-14.5); Segmented Neutrophils % 59.1 %
[2018-07-14 06:25] LABS: BUN/Creatinine Ratio 20 (6-26); Blood Urea Nitrogen 16 mg/dL (6-20); Calcium 8.3 mg/dL (8.6-10.3); Carbon Dioxide 19 mEq/L (23-29); Chloride 106 mEq/L (98-107); Glucose 72 mg/dL (70-105); Osmolality,Calculated 270 (280-300); Potassium 4.8 mEq/L (3.5-5.1); Sodium 130 mEq/L (136-145); eGFR For Non-African Americans > 60 (> 60)
[2018-07-14] MEDS: Piperacillin/Tazobactam 3.375 GM in 0.9 % Sodium Chloride Mini Bag 100 ML IVPB SCH ×2 (08:09→16:00)
[2018-07-14] MEDS: 0.9 % Sodium Chloride 1,000 ML IVC SCH ×2 (08:09→15:59)
[2018-07-14 08:41] LABS: Alanine Aminotransferase 54 Units/L (7-52); Albumin/Globulin Ratio 0.8 (1.1-2.2); Alkaline Phosphatase 115 Units/L (34-104); Aspartate Amino Transferase 51 Units/L (13-39); Bilirubin,Direct 0.3 mg/dL (0.0-0.2); Bilirubin,Indirect 0.7 mg/dL (0.0-1.2); Globulin 3.6 g/dL (2.4-3.5); Total Protein 6.6 g/dL (6.4-8.9)
--- NOTE | 2018-07-14 08:42 | General Surgery Consult Note ---
Date of Encounter: 07/14/18 Time of Encounter: 08:00 Assessment and Plan (1) Abscess Current Visit: Yes Status: Acute Left lower extremity anterior thigh with large area of induration approximately 9 cm in diameter with an area of fluctuance in the middle approximately 3 cm in diameter. Her CT is without evidence of subcutaneous gas. The area was incised and drained at bedside and the necrotic tissue was debrided. See procedure for further details. Plan: -antibiotics and discomfort management per primary team -cultures pending -diet per primary team, no surgical indication to restrict diet -keep the area covered. May reinforce outer dressing today. Do not change packing. Beginning 07/15/2018, daily wound care: remove dressing and packing. Shower with antibacterial soap. Repack with 1/2 inch iodoform gauze. Cover with a dry dressing. She states her mother is at home and can assist with packing. Her mother will need to be present and complete a return demonstration prior to discharge. (2) History of intravenous drug abuse Current Visit: Yes Status: Acute Denies current IV drug use however there are multiple small areas of punctate trauma in the lower extremities consistent with track malik. There is no evidence of shower clots. History of Present Illness Consult date: 07/13/18 (Dr. Prince Hamlin) Reason for consult: wound care (LEft leg abscess) Requesting physician: Donis Newton History of present illness: Leticia 3-year-old female with a significant past medical history including IV drug use and current methadone use. She presents on 07/13/2018 with a painful, red, raised, and draining area on the left front of her thigh. She states the area has been there for 1 week but has significantly gotten larger. She denies fever, chills, any other abscess areas, shortness of breath , chest pain, abdominal pain, extremity pain other than the left front of her thigh. She denies recent IV drug use. Surgery has been consult did for management of left anterior thigh abscess Past Med Surg Social Fam HX - Past Medical History Source: patient, old records reviewed Medical history: no medical history Additional medical history: on methadone Psychiatric history: depression - Past Surgical History Surgical History: other (Rhinoplasty, tonsillectomy, hand) Additional surgical history: R hand,. throat and nose - Social History Smoking Status: Current every day smoker Packs per day: One pack per day for greater than 20 years Smokeless Tobacco Status: No Alcohol use: none Drug use: none, IV Drug Use, other Current living situation: Home - Independent Activity Level: Independent ambulation Recent Out of Country Travel Within the Last 8 Weeks: No Exposure or Possible Exposure to Illness During Travel: No - Family History Grandmother Hx Family Cardiac Disorders: Yes Hx Family Endocrine Disorder: Yes (DM) Grandfather Hx Family Cardiac Disorders: Yes Hx Family Endocrine Disorder: Yes (DM) Medications and Allergies Methadone HCl 95 mg PO DAILY 07/14/18 [History] 3 Allergy/AdvReac Type Severity Reaction Status Date / Time sulfamethoxazole Allergy Hives Verified 01/05/18 22:01 [From Bactrim] trimethoprim [From Bactrim] Allergy Hives Verified 01/05/18 22:01 Review of Systems All systems PM: reviewed and no additional remarkable complaints except as stated All systems PM: The remainder of the systems were reviewed and are negative General Surgery Exam Initial Vital Signs Temp Pulse Resp BP Pulse Ox 99.5 F 151 18 132/76 96 07/13/18 12:40 07/13/18 12:40 07/13/18 12:40 07/13/18 12:40 07/13/18 12:40 VITAL SIGNS: Reviewed. See [facility] GENERAL: In no apparent distress. HEENT: Normocephalic, atraumatic, pupils are equal and reactive, extraocular motions intact, oropharynx is pink and moist, there is no neck adenopathy or JVD noted. CHEST/RESPIRATORY: The thorax is free from signs of trauma. Lung sounds: clear to auscultation, normal respiratory effort CARDIAC: Regular rate and rhythm. Normal S1 and S2, without murmurs, gallops, or rubs. VASCULAR: No Edema. 2+ peripheral pulses. No evidence of shower clotting noted however there are multiple small areas in the lower extremities felt to be consistent with track malik. ABDOMEN: soft, nontender, active bowel sounds MUSCULOSKELETAL: Good range of motion of all major joints. Extremities without clubbing, cyanosis or edema. NEUROLOGIC EXAM: Alert and oriented x 3. Speech normal. Follows commands. PSYCHIATRIC: Mood normal. SKIN: No rash or lesions. Large area of induration approximately 8 cm in diameter with a central area of fluctuance approximately 3 cm in diameter, necrotic roof, thick yellow drainage. Exam Initial Vital Signs Temp Pulse Resp BP Pulse Ox 99.5 F 151 18 132/76 96 07/13/18 12:40 07/13/18 12:40 07/13/18 12:40 07/13/18 12:40 07/13/18 12:40 Results - Labs 07/14/18 05:39 07/14/18 05:39 Abnormal lab results Hgb 10.9 g/dL (11.5-15.4) L 07/14/18 05:39 Hct 34.2 % (35.3-44.9) L 07/14/18 05:39 MCH 27.1 pg (28.0-33.3) L 07/14/18 05:39 MPV 9.1 fL (9.4-12.4) L 07/14/18 05:39 ESR 98 mm/hr (0-15) H 07/13/18 12:56 Sodium 130 mEq/L (136-145) L 07/14/18 05:39 Carbon Dioxide 19 mEq/L (23-29) L 07/14/18 05:39 Calculated Osmolality 270 (280-300) L 07/14/18 05:39 Calcium 8.3 mg/dL (8.6-10.3) L 07/14/18 05:39 Direct Bilirubin 0.3 mg/dL (0.0-0.2) H 07/14/18 05:39 AST 51 Units/L (13-39) H 07/14/18 05:39 ALT 54 Units/L (7-52) H 07/14/18 05:39 Alkaline Phosphatase 115 Units/L (34-104) H 07/14/18 05:39 C-Reactive Protein 100 mg/L (Less than 10) H 07/13/18 12:56 Albumin 3.0 g/dL (3.5-5.7) L 07/14/18 05:39 Globulin 3.6 g/dL (2.4-3.5) H 07/14/18 05:39 Albumin/Globulin Ratio 0.8 (1.1-2.2) L 07/14/18 05:39 Diabetes panel 07/14/18 Range/Units 05:39 Sodium 130 L (136-145) mEq/L Potassium 4.8 (3.5-5.1) mEq/L Chloride 106 (98-107) mEq/L Carbon Dioxide 19 L (23-29) mEq/L BUN 16 (6-20) mg/dL Creatinine 0.81 (0.60-1.20) mg/dL Glucose 72 (70-105) mg/dL Calcium 8.3 L (8.6-10.3) mg/dL AST 51 H (13-39) Units/L ALT 54 H (7-52) Units/L Alkaline Phosphatase 115 H (34-104) Units/L Albumin 3.0 L (3.5-5.7) g/dL Calcium panel 07/14/18 Range/Units 05:39 Calcium 8.3 L (8.6-10.3) mg/dL Albumin 3.0 L (3.5-5.7) g/dL Pituitary panel 07/14/18 Range/Units 05:39 Sodium 130 L (136-145) mEq/L Potassium 4.8 (3.5-5.1) mEq/L Chloride 106 (98-107) mEq/L Carbon Dioxide 19 L (23-29) mEq/L BUN 16 (6-20) mg/dL Creatinine 0.81 (0.60-1.20) mg/dL Glucose 72 (70-105) mg/dL Calcium 8.3 L (8.6-10.3) mg/dL Adrenal panel 07/14/18 Range/Units 05:39 Sodium 130 L (136-145) mEq/L Potassium 4.8 (3.5-5.1) mEq/L Chloride 106 (98-107) mEq/L Carbon Dioxide 19 L (23-29) mEq/L BUN 16 (6-20) mg/dL Creatinine 0.81 (0.60-1.20) mg/dL Glucose 72 (70-105) mg/dL Calcium 8.3 L (8.6-10.3) mg/dL Total Bilirubin 1.0 (0.3-1.0) mg/dL AST 51 H (13-39) Units/L ALT 54 H (7-52) Units/L Alkaline Phosphatase 115 H (34-104) Units/L Albumin 3.0 L (3.5-5.7) g/dL All other labs normal. - Imaging Additional studies: CT of LLE report and images reviewed. Consult Discharge Plan - Plan Referrals: NONE,PCP [Primary Care Provider] -
[2018-07-14] MEDS ORDERED: Methadone Oral Concentrate 10 MG/ML PO SCH (09:00)
--- NOTE | 2018-07-14 09:47 | General Surgery Procedure Note ---
Date of procedure: 07/14/18 Procedure: ABSCESS INCISION AND DRAINAGE NOTE INDICATION: Abscess manifested as a tender, swollen fluctuant mass in the superficial subcutaneous tissue. INFORMED CONSENT: The risks and benefits of the procedure including incomplete drainage, scarring, infection and bleeding was explained and the patient verbalized their understanding and wished to proceed with the procedure. PROCEDURE: The area of greatest fluctuance was identified, prepped, and draped in a sterile fashion. Local anesthetic (20 MLs of 2% lidocaine) was introduced subcutaneously over the area of greatest fluctuance. A cruciate incision was then made over the area of greatest fluctuance, with immediate return of a large amount of purulent material. The wound was explored with a hemostat to break up loculations and irrigated with 40MLs saline solution. Once the wound was explored, cleaned, and irrigated, 1/4 inch iodoform gauze packing was placed loosely in the wound. A dressing was then applied. FINDINGS: Purulent drainage. EBL: <5 mL COMPLICATIONS: None. Signature: Adrienne Mar APRN, FLEET ADMINISTRATIVE ASSISTANT-C
[2018-07-14] MEDS: Ketorolac 15 MG/ML VIAL IVP PRN (16:07)
--- NOTE | 2018-07-14 19:20 | Internal Med Progress Note ---
Hospitalist Progress Note - Encounter Date of Encounter: 07/14/18 Time of Encounter: 13:00 - Subjective Interval History: General surgery consulted and incision and drainage was done at the bedside and purulent drainage was expressed and cultures sent. - Exam Vitals: Temp Pulse Resp BP Pulse Ox 98.1 F 82 16 102/68 96 07/14/18 14:37 07/14/18 14:37 07/14/18 14:37 07/14/18 14:37 07/14/18 14:37 Exam: Gen.: Nonacute distress, alert and oriented 3 ENT: Mucosal membranes moist Respiratory: Lungs are clear to auscultation bilaterally without any wheezing rhonchi or rales Cardiovascular: Normal S1 and S2 regular rate rhythm no murmurs rubs or gallops Abdomen: Soft, nontender and nondistended with positive bowel sounds Extremities: No lower extremity edema Skin: Normal color - Assessment and Plan (1) Abscess Current Visit: Yes Status: Acute Assessment and Plan: Patient with large left thigh erythematous and indurated area Continue IV vancomycin/IV Zosyn General surgery with recommendations for incision and drainage which was done today and purulent drainage expressed; cultures pending (2) Elevated transaminase level Current Visit: Yes Status: Acute Assessment and Plan: AST and ALT slightly elevated Will continue to monitor (3) History of intravenous drug abuse Current Visit: Yes Status: Acute Assessment and Plan: Will be careful with pain narcotics given history of IV drug abuse - Time Spent with Patient Total time spent is greater than 50% in coordination of care (as documented) at patient's floor/unit and/or counseling patient: Internal Medicine: Result - Labs CBC & Chem 7: 07/14/18 05:39 07/14/18 05:39 Labs: Short CBC 07/14/18 Range/Units 05:39 WBC 8.2 (4.3-11.1) K/mcL Hgb 10.9 L (11.5-15.4) g/dL Hct 34.2 L (35.3-44.9) % Plt Count 199 (140-400) K/mcL Neutrophils # 4.8 (1.6-8.9) K/mcL BMP 07/14/18 05:39 Sodium 130 L Potassium 4.8 Chloride 106 Carbon Dioxide 19 L BUN 16 Creatinine 0.81 Glucose 72 Calcium 8.3 L Liver Function 09/27/18 Range/Units 05:39 Total Bilirubin 1.0 (0.3-1.0) mg/dL Direct Bilirubin 0.3 H (0.0-0.2) mg/dL AST 51 H (13-39) Units/L ALT 54 H (7-52) Units/L Alkaline Phosphatase 115 H (34-104) Units/L Albumin 3.0 L (3.5-5.7) g/dL Consult Discharge Plan - Plan Referrals: NONE,PCP [Primary Care Provider] -
[2018-07-15] MEDS: Piperacillin/Tazobactam 3.375 GM in 0.9 % Sodium Chloride Mini Bag 100 ML IVPB SCH ×3 (00:04→16:54)
[2018-07-15] MEDS: Ketorolac 15 MG/ML VIAL IVP PRN ×3 (00:08→16:58)
--- NOTE | 2018-07-15 00:48 | Electrocardiograph Report ---
[facility] Test Date: 2018-07-13 Pat Name: Leticia Davalos Department: EXAM2 Room: 3A37 Gender: F Boot Turner: : 1985 Requested By: Benjamin Mendez Order Number: [id number] Reading MD: Shae Gonzalez Measurements Intervals [place] Rate: 139 P: 56 CO: 141 QRS: 5 QRSD: 83 T: 32 QT: 279 QTc: 425 Interpretive Statements Sinus tachycardia Electronically Signed On 07-15-2018 0:46:49 EDT by Shae Gonzalez
[2018-07-15] MEDS ORDERED: Aminoglycoside Consult 1 EACH MC ONE (08:32)
[2018-07-15] MEDS: 0.9 % Sodium Chloride 1,000 ML IVC SCH ×3 (08:37→16:54)
[2018-07-15] MEDS ORDERED: Methadone Oral Concentrate 50 MG/5 ML UDC PO SCH (09:00)
[2018-07-15] MEDS: Methadone Oral Concentrate 50 MG/5 ML UDC PO SCH (09:06)
[2018-07-15 10:02] LABS: Basophils # 0.1 K/mcL (0.0-0.2); Basophils % 1.9 %; Eosinophils # 0.6 K/mcL (0.0-0.6); Eosinophils % 10.4 %; Hematocrit 32.6 % (35.3-44.9); Hemoglobin 10.6 g/dL (11.5-15.4); Immature Granulocytes % 0.6 % (0-4); Lymphocytes # 1.8 K/mcL (0.6-4.6); Lymphocytes % 32.8 %; Mean Corpuscular HGB Conc 32.5 g/dL (31.6-35.5); Mean Corpuscular Hemoglobin 27.3 pg (28.0-33.3); Mean Platelet Volume 8.7 fL (9.4-12.4); Monocytes # 0.6 K/mcL (0.0-1.3); Monocytes % 10.2 %; Neutrophils # 2.4 K/mcL (1.6-8.9); Platelet Count 222 K/mcL (140-400); Red Blood Count 3.88 M/mcL (3.82-4.97); Red Cell Distribution Width 13.1 % (11.5-14.5); Segmented Neutrophils % 44.1 %
[2018-07-15 10:28] LABS: Alanine Aminotransferase 58 Units/L (7-52); Albumin 2.6 g/dL (3.5-5.7); Albumin/Globulin Ratio 0.7 (1.1-2.2); Alkaline Phosphatase 118 Units/L (34-104); Aspartate Amino Transferase 49 Units/L (13-39); BUN/Creatinine Ratio 17 (6-26); Bilirubin,Total 0.5 mg/dL (0.3-1.0); Blood Urea Nitrogen 13 mg/dL (6-20); Calcium 8.3 mg/dL (8.6-10.3); Carbon Dioxide 22 mEq/L (23-29); Chloride 110 mEq/L (98-107); Globulin 3.6 g/dL (2.4-3.5); Glucose 119 mg/dL (70-105); Osmolality,Calculated 287 (280-300); Potassium 4.2 mEq/L (3.5-5.1); Sodium 138 mEq/L (136-145); Total Protein 6.2 g/dL (6.4-8.9); eGFR For Non-African Americans > 60 (> 60)
--- NOTE | 2018-07-15 12:57 | General Surgery Progress Note ---
<Nimo Trejo - Last Filed: 07/15/18 12:54> Date of Encounter: 07/15/18 Time of Encounter: 12:00 - Assessment and Plan (1) Abscess of left thigh Status: Acute S/P I&D of left thigh 07/14/18 Cultures- strep pyogenes (Group A) Daily wound care May transition to PO antibiotics at discharge Patient states that her mother can pack the wound at home upon discharge Will arrange for follow-up in the surgery office in 1 week Surgery will sign off at this time. Please call with any further questions/ concerns. Thank you for allowing us to participate in the care of this patient. Subjective Patient reports: no new complaints, feels better, still having pain, pain is less, tolerating a regular diet, afebrile Objective Vital Signs - Last 8 Hours Temp Pulse Resp BP Pulse Ox 07/15/18 10:29 97.7 F 81 16 100/66 99 07/15/18 05:03 97.5 F L 82 16 122/60 Intake and Output 07/14/18 07/15/18 07/15/18 23:59 07:59 15:59 Intake Total 1100 / 1590 590 / 590 600 / 600 Output Total 0 / 0 250 / 250 300 / 300 Balance 1100 / 1590 340 / 340 300 / 300 Intake: IV Fluids 1100 / 1350 350 / 350 0.9 % Sodium Chloride 1,000 ML 1000 / 1000 @ 125 mls/hr IVC .Q8H MARY JO Rx#: [id number] Zosyn 3.375 GM In 0.9 % Sodium 100 / 100 100 / 100 Chloride (Mini-Bag +) 100 ML @ 25 mls/hr IVPB Q8HR MARY JO Rx#: [id number] Vancocin 1,250 MG In 0.9 % 250 / 250 Sodium Chloride 250 ML @ 166.67 mls/hr IVPB Q12H MARY JO Rx#: [id number] Oral 0 / 240 240 / 240 600 / 600 Output: Urine 0 / 0 250 / 250 300 / 300 Other: Meal Breakfast Percent of Meal Consumed 100% # Bowel Movements 0 0 - General physical appearance well developed, well nourished, no distress - Eyes normal ocular movement - ENT normal mucosa, atraumatic, normocephalic - Neck Neck exam: trachea midline - Respiratory normal expansion, normal respiratory effort, clear to auscultation - Cardiovascular Cardiovascular exam: Present: RRR - Abdomen Abdomen: Present: soft, non tender - Incision Incision: Present: open (Left thigh wound open and draining a small amount of serousang. drainage, surrounding erythema and induration improving) - Neurologic CN 2-12 grossly intact - Psychiatric oriented to time, oriented to person, oriented to place, speech is normal, memory intact - Labs 07/15/18 09:51 07/15/18 09:51 Diabetes panel 07/15/18 Range/Units 09:51 Sodium 138 (136-145) mEq/L Potassium 4.2 (3.5-5.1) mEq/L Chloride 110 H (98-107) mEq/L Carbon Dioxide 22 L (23-29) mEq/L BUN 13 (6-20) mg/dL Creatinine 0.78 (0.60-1.20) mg/dL Glucose 119 H (70-105) mg/dL Calcium 8.3 L (8.6-10.3) mg/dL AST 49 H (13-39) Units/L ALT 58 H (7-52) Units/L Alkaline Phosphatase 118 H (34-104) Units/L Albumin 2.6 L (3.5-5.7) g/dL Calcium panel 07/15/18 Range/Units 09:51 Calcium 8.3 L (8.6-10.3) mg/dL Albumin 2.6 L (3.5-5.7) g/dL Pituitary panel 07/15/18 Range/Units 09:51 Sodium 138 (136-145) mEq/L Potassium 4.2 (3.5-5.1) mEq/L Chloride 110 H (98-107) mEq/L Carbon Dioxide 22 L (23-29) mEq/L BUN 13 (6-20) mg/dL Creatinine 0.78 (0.60-1.20) mg/dL Glucose 119 H (70-105) mg/dL Calcium 8.3 L (8.6-10.3) mg/dL Adrenal panel 07/15/18 Range/Units 09:51 Sodium 138 (136-145) mEq/L Potassium 4.2 (3.5-5.1) mEq/L Chloride 110 H (98-107) mEq/L Carbon Dioxide 22 L (23-29) mEq/L BUN 13 (6-20) mg/dL Creatinine 0.78 (0.60-1.20) mg/dL Glucose 119 H (70-105) mg/dL Calcium 8.3 L (8.6-10.3) mg/dL Total Bilirubin 0.5 (0.3-1.0) mg/dL AST 49 H (13-39) Units/L ALT 58 H (7-52) Units/L Alkaline Phosphatase 118 H (34-104) Units/L Albumin 2.6 L (3.5-5.7) g/dL Consult Discharge Plan - Plan Additional Instructions: Daily wound care: cleanse with soap and water in the shower and pat dry, pack open area with 1/4 inch plain gauze, cover with dry dressing and tape to secure daily. Referrals: Osvaldo Villalba MD [Non-Partnered Physician] - 07/19/18 1:15 pm (Will see Dr. Villalba in the Wound Care Department.) NONE,PCP [Primary Care Provider] - Prescriptions: Amoxicillin/Clavulanate [Augmentin] 875 mg PO BIDWM 9 Days #14 tablet - Attending Attestation For this encounter, I have reviewed the TEMPERER or PA documentation, treatment plan, and medical decision making; and I have had face to face time with this patient. <Prince Hamlin - Last Filed: 07/19/18 06:47> Date of Encounter: 07/15/18 Objective Intake and Output 07/18/18 07/18/18 07/19/18 15:59 23:59 07:59 Intake Total 720 / 720 Output Total 1000 / 1000 Balance -280 / -280 Intake: Oral 720 / 720 Output: Urine 1000 / 1000 Other: Meal Breakfast Percent of Meal Consumed 100% - Labs 07/17/18 10:37 07/17/18 10:37 - Attending Attestation I reviewed the above assessment and evaluation and agree with the above plan.
--- NOTE | 2018-07-15 19:57 | Internal Med Progress Note ---
Hospitalist Progress Note - Encounter Date of Encounter: 07/15/18 Time of Encounter: 11:00 - Subjective Interval History: Patient's cellulitis improving surrounding area that was incised and drained by surgery - Exam Vitals: Temp Pulse Resp BP Pulse Ox 97.7 F 81 14 107/74 97 07/15/18 18:56 07/15/18 18:56 07/15/18 18:56 07/15/18 18:56 07/15/18 18:56 Exam: Gen.: Nonacute distress, alert and oriented 3 ENT: Mucosal membranes moist Respiratory: Lungs are clear to auscultation bilaterally without any wheezing rhonchi or rales Cardiovascular: Normal S1 and S2 regular rate rhythm no murmurs rubs or gallops Abdomen: Soft, nontender and nondistended with positive bowel sounds Extremities: No lower extremity edema Skin: Decreased erythematous area surrounding area that was incised and drained decreased warmth to touch and decreased pain to touch - Assessment and Plan (1) Abscess Current Visit: Yes Status: Acute Assessment and Plan: Decreased erythematous area surrounding area that was incised and drained decreased warmth to touch and decreased pain to touch Cultures grew strep pageant is group A Antibiotics descalated to IV Zosyn (2) Elevated transaminase level Current Visit: Yes Status: Acute Assessment and Plan: AST and ALT slightly elevated Will continue to monitor (3) History of intravenous drug abuse Current Visit: Yes Status: Acute Assessment and Plan: Will be careful with pain narcotics given history of IV drug abuse - Time Spent with Patient Total time spent is greater than 50% in coordination of care (as documented) at patient's floor/unit and/or counseling patient: Internal Medicine: Result - Labs CBC & Chem 7: 07/15/18 09:51 07/15/18 09:51 Labs: Short CBC 07/15/18 Range/Units 09:51 WBC 5.4 (4.3-11.1) K/mcL Hgb 10.6 L (11.5-15.4) g/dL Hct 32.6 L (35.3-44.9) % Plt Count 222 (140-400) K/mcL Neutrophils # 2.4 (1.6-8.9) K/mcL BMP 07/15/18 09:51 Sodium 138 Potassium 4.2 Chloride 110 H Carbon Dioxide 22 L BUN 13 Creatinine 0.78 Glucose 119 H Calcium 8.3 L Liver Function 07/15/18 Range/Units 09:51 Total Bilirubin 0.5 (0.3-1.0) mg/dL AST 49 H (13-39) Units/L ALT 58 H (7-52) Units/L Alkaline Phosphatase 118 H (34-104) Units/L Albumin 2.6 L (3.5-5.7) g/dL Consult Discharge Plan - Plan Additional Instructions: Daily wound care: cleanse with soap and water in the shower and pat dry, pack open area with 1/4 inch plain gauze, cover with dry dressing and tape to secure daily. Referrals: Adrienne Mar, ENEIDA [Advanced Practice Nurse] - 07/19/18 2:15 pm (hospital follow-up; wound check) NONE,PCP [Primary Care Provider] -
[2018-07-16] MEDS: Ketorolac 15 MG/ML VIAL IVP PRN ×4 (00:19→21:35)
[2018-07-16] MEDS: Piperacillin/Tazobactam 3.375 GM in 0.9 % Sodium Chloride Mini Bag 100 ML IVPB SCH ×3 (00:20→17:00)
[2018-07-16] MEDS: 0.9 % Sodium Chloride 1,000 ML IVC SCH ×3 (00:21→17:01)
[2018-07-16] MEDS: Methadone Oral Concentrate 50 MG/5 ML UDC PO SCH (09:31)
--- NOTE | 2018-07-16 09:33 | Internal Med Progress Note ---
Hospitalist Progress Note - Encounter Date of Encounter: 07/16/18 Time of Encounter: 11:00 - Subjective Interval History: Patient's cellulitis improving surrounding area that was incised and drained by surgery - Exam Vitals: Temp Pulse Resp BP Pulse Ox 97.6 F 69 14 118/79 99 07/16/18 05:36 07/16/18 05:36 07/16/18 05:36 07/16/18 05:36 07/16/18 05:36 Exam: Gen.: Nonacute distress, alert and oriented 3 ENT: Mucosal membranes moist Respiratory: Lungs are clear to auscultation bilaterally without any wheezing rhonchi or rales Cardiovascular: Normal S1 and S2 regular rate rhythm no murmurs rubs or gallops Abdomen: Soft, nontender and nondistended with positive bowel sounds Extremities: No lower extremity edema Skin: Decreased erythematous area surrounding area that was incised and drained decreased warmth to touch and decreased pain to touch - Assessment and Plan (1) Abscess Current Visit: Yes Status: Acute Assessment and Plan: Decreased erythematous area surrounding area that was incised and drained decreased warmth to touch and decreased pain to touch Cultures grew strep pageant is group A Continue IV Zosyn (2) Elevated transaminase level Current Visit: Yes Status: Acute Assessment and Plan: AST and ALT slightly elevated Will continue to monitor (3) History of intravenous drug abuse Current Visit: Yes Status: Acute Assessment and Plan: Will be careful with pain narcotics given history of IV drug abuse - Time Spent with Patient Total time spent is greater than 50% in coordination of care (as documented) at patient's floor/unit and/or counseling patient: Internal Medicine: Result - Labs CBC & Chem 7: 07/16/18 09:43 07/16/18 09:43 Labs: Short CBC 07/15/18 Range/Units 09:51 WBC 5.4 (4.3-11.1) K/mcL Hgb 10.6 L (11.5-15.4) g/dL Hct 32.6 L (35.3-44.9) % Plt Count 222 (140-400) K/mcL Neutrophils # 2.4 (1.6-8.9) K/mcL BMP 07/15/18 09:51 Sodium 138 Potassium 4.2 Chloride 110 H Carbon Dioxide 22 L BUN 13 Creatinine 0.78 Glucose 119 H Calcium 8.3 L Liver Function 07/15/18 Range/Units 09:51 Total Bilirubin 0.5 (0.3-1.0) mg/dL AST 49 H (13-39) Units/L ALT 58 H (7-52) Units/L Alkaline Phosphatase 118 H (34-104) Units/L Albumin 2.6 L (3.5-5.7) g/dL Consult Discharge Plan - Plan Additional Instructions: Daily wound care: cleanse with soap and water in the shower and pat dry, pack open area with 1/4 inch plain gauze, cover with dry dressing and tape to secure daily. Referrals: Adrienne Mar, [employer] [facility] [Advanced Practice Nurse] - 07/19/18 2:15 pm (hospital follow-up; wound check) NONE,PCP [Primary Care Provider] -
[2018-07-16 09:53] LABS: Basophils # 0.1 K/mcL (0.0-0.2); Basophils % 1.9 %; Eosinophils # 0.4 K/mcL (0.0-0.6); Eosinophils % 8.3 %; Hematocrit 33.7 % (35.3-44.9); Hemoglobin 10.8 g/dL (11.5-15.4); Immature Granulocytes % 0.6 % (0-4); Lymphocytes # 1.8 K/mcL (0.6-4.6); Lymphocytes % 35.3 %; Mean Corpuscular Hemoglobin 27.5 pg (28.0-33.3); Mean Corpuscular Volume 85.8 fL (83.0-100.0); Mean Platelet Volume 8.5 fL (9.4-12.4); Monocytes # 0.5 K/mcL (0.0-1.3); Monocytes % 9.9 %; Neutrophils # 2.3 K/mcL (1.6-8.9); Platelet Count 253 K/mcL (140-400); Red Blood Count 3.93 M/mcL (3.82-4.97); Red Cell Distribution Width 12.9 % (11.5-14.5)
[2018-07-16 10:14] LABS: Alanine Aminotransferase 49 Units/L (7-52); Albumin 2.6 g/dL (3.5-5.7); Albumin/Globulin Ratio 0.7 (1.1-2.2); Alkaline Phosphatase 101 Units/L (34-104); Aspartate Amino Transferase 33 Units/L (13-39); BUN/Creatinine Ratio 16 (6-26); Bilirubin,Total 0.3 mg/dL (0.3-1.0); Blood Urea Nitrogen 15 mg/dL (6-20); Calcium 8.2 mg/dL (8.6-10.3); Carbon Dioxide 24 mEq/L (23-29); Chloride 109 mEq/L (98-107); Globulin 3.7 g/dL (2.4-3.5); Glucose 82 mg/dL (70-105); Osmolality,Calculated 282 (280-300); Potassium 4.1 mEq/L (3.5-5.1); Sodium 136 mEq/L (136-145); Total Protein 6.3 g/dL (6.4-8.9); eGFR For Non-African Americans > 60 (> 60)
[2018-07-17] MEDS: 0.9 % Sodium Chloride 1,000 ML IVC SCH ×2 (01:43→09:17)
[2018-07-17] MEDS: Piperacillin/Tazobactam 3.375 GM in 0.9 % Sodium Chloride Mini Bag 100 ML IVPB SCH ×3 (01:44→16:53)
[2018-07-17] MEDS: Methadone Oral Concentrate 50 MG/5 ML UDC PO SCH (09:17)
[2018-07-17] MEDS: Ketorolac 15 MG/ML VIAL IVP PRN ×2 (09:17→15:43)
--- NOTE | 2018-07-17 09:51 | Internal Med Progress Note ---
Hospitalist Progress Note - Encounter Date of Encounter: 07/17/18 Time of Encounter: 11:00 - Subjective Interval History: Patient's cellulitis improving surrounding area that was incised and drained by surgery - Exam Vitals: Temp Pulse Resp BP Pulse Ox 98.0 F 72 16 126/87 99 07/17/18 07:34 07/17/18 07:34 07/17/18 07:34 07/17/18 07:34 07/17/18 07:34 Exam: Gen.: Nonacute distress, alert and oriented 3 ENT: Mucosal membranes moist Respiratory: Lungs are clear to auscultation bilaterally without any wheezing rhonchi or rales Cardiovascular: Normal S1 and S2 regular rate rhythm no murmurs rubs or gallops Abdomen: Soft, nontender and nondistended with positive bowel sounds Extremities: No lower extremity edema Skin: Decreased erythematous area surrounding area that was incised and drained decreased warmth to touch and decreased pain to touch - Assessment and Plan (1) Abscess Current Visit: Yes Status: Acute Assessment and Plan: Decreased erythematous area surrounding area that was incised and drained decreased warmth to touch and decreased pain to touch Cultures grew strep pageant is group A Antibiotics descalated and Vancomycin was discontinued; continue day 4 of IV Zosyn (2) Elevated transaminase level Current Visit: Yes Status: Acute Assessment and Plan: Resolved; AST and ALT now within normal limits Will continue to monitor (3) History of intravenous drug abuse Current Visit: Yes Status: Acute Assessment and Plan: Will be careful with pain narcotics given history of IV drug abuse DVT Prophylaxis: SCDs - Time Spent with Patient Total time spent is greater than 50% in coordination of care (as documented) at patient's floor/unit and/or counseling patient: Internal Medicine: Result - Labs CBC & Chem 7: 07/17/18 10:37 07/17/18 10:37 Labs: Short CBC 07/16/18 Range/Units 09:43 WBC 5.2 (4.3-11.1) K/mcL Hgb 10.8 L (11.5-15.4) g/dL Hct 33.7 L (35.3-44.9) % Plt Count 253 (140-400) K/mcL Neutrophils # 2.3 (1.6-8.9) K/mcL BMP 07/16/18 09:43 Sodium 136 Potassium 4.1 Chloride 109 H Carbon Dioxide 24 BUN 15 Creatinine 0.92 Glucose 82 Calcium 8.2 L Liver Function 07/16/18 Range/Units 09:43 Total Bilirubin 0.3 (0.3-1.0) mg/dL AST 33 (13-39) Units/L ALT 49 (7-52) Units/L Alkaline Phosphatase 101 (34-104) Units/L Albumin 2.6 L (3.5-5.7) g/dL Consult Discharge Plan - Plan Additional Instructions: Daily wound care: cleanse with soap and water in the shower and pat dry, pack open area with 1/4 inch plain gauze, cover with dry dressing and tape to secure daily. Referrals: Adrienne Mar, ENEIDA [Advanced Practice Nurse] - 07/19/18 2:15 pm (hospital follow-up; wound check) NONE,PCP [Primary Care Provider] -
[2018-07-17 10:55] LABS: Basophils # 0.1 K/mcL (0.0-0.2); Basophils % 1.9 %; Eosinophils # 0.4 K/mcL (0.0-0.6); Eosinophils % 6.7 %; Hematocrit 37.2 % (35.3-44.9); Hemoglobin 11.6 g/dL (11.5-15.4); Immature Granulocytes % 0.4 % (0-4); Lymphocytes % 29.3 %; Mean Corpuscular HGB Conc 31.2 g/dL (31.6-35.5); Mean Corpuscular Hemoglobin 27.4 pg (28.0-33.3); Mean Corpuscular Volume 87.9 fL (83.0-100.0); Mean Platelet Volume 9.3 fL (9.4-12.4); Monocytes % 8.4 %; Neutrophils # 2.8 K/mcL (1.6-8.9); Platelet Count 209 K/mcL (140-400); Red Blood Count 4.23 M/mcL (3.82-4.97); Red Cell Distribution Width 12.9 % (11.5-14.5); Segmented Neutrophils % 53.3 %
[2018-07-17 10:56] LABS: Lymphocytes # 1.6 K/mcL (0.6-4.6); Monocytes # 0.5 K/mcL (0.0-1.3)
[2018-07-17 12:29] LABS: BUN/Creatinine Ratio 18 (6-26); Blood Urea Nitrogen 16 mg/dL (6-20); Carbon Dioxide 18 mEq/L (23-29); Chloride 109 mEq/L (98-107); Glucose 74 mg/dL (70-105); Osmolality,Calculated 286 (280-300); Potassium 4.2 mEq/L (3.5-5.1); Sodium 138 mEq/L (136-145); eGFR For Non-African Americans > 60 (> 60)
[2018-07-17 13:32] LABS: Alkaline Phosphatase 105 Units/L (34-104); Calcium 8.4 mg/dL (8.6-10.3)
[2018-07-17 13:33] LABS: Alanine Aminotransferase 43 Units/L (7-52); Albumin 2.8 g/dL (3.5-5.7); Albumin/Globulin Ratio 0.7 (1.1-2.2); Aspartate Amino Transferase 35 Units/L (13-39); Bilirubin,Total 0.3 mg/dL (0.3-1.0); Total Protein 6.8 g/dL (6.4-8.9)
[2018-07-18] MEDS: Piperacillin/Tazobactam 3.375 GM in 0.9 % Sodium Chloride Mini Bag 100 ML IVPB SCH ×2 (00:09→08:34)
[2018-07-18] MEDS: Methadone Oral Concentrate 50 MG/5 ML UDC PO SCH (08:34)
--- NOTE | 2018-07-18 14:17 | Discharge Summary ---
Date of Encounter: 07/18/18 Time of Encounter: 11:00 - Discharge Diagnosis (1) Abscess Priority: Primary Status: Acute (2) Elevated transaminase level Priority: Secondary Status: Acute (3) History of intravenous drug abuse Priority: Secondary Status: Acute Hospital course: Patient is a 33-year-old female with past medical history significant for IV drug abuse who presents to the ER on 07/13/18 due to left thigh cellulitis/ abscess. Patient reports that she noticed approximately 2 weeks ago a black pimple on her left thigh which she tried to pop. After which, patient noted that the area became irritated and tender so she went to urgent care where she was given an antibiotic which she does not recall the name or duration. Patient reported no improvement however and noticed that the area became more erythematous and painful so she decided to come to the ER for evaluation. In the ER, patient was found to have leukocytosis with white blood cell count of 12.1. Lower extremities CT was done which showed focal skin thickening and subcutaneous fat stranding in the anterior mid-thigh, most compatible with cellulitis; no soft tissue gas or evidence of drainable fluid collection/ abscess. Patient was started on IV Zosyn and vancomycin in the ER and will be admitted to the medical surgical floor for further management. During patient's hospital stay, her cellulitis greatly improved on IV vancomycin and she will be discharged to complete a 9 day course of Augmentin. - Time Spent with Patient Total time spent providing and/or coordinating discharge services: Less than 30 minutes - Discharge Medications Prescriptions: Amoxicillin/Clavulanate [Augmentin] 875 mg PO BIDWM 9 Days #14 tablet Home Medications: Methadone HCl 95 mg PO DAILY 07/14/18 [History] Amoxicillin/Clavulanate [Augmentin] 875 mg PO BIDWM 9 Days #14 tablet 07/18/18 [ Rx] Allergies/Adverse Reactions: 3 Allergy/AdvReac Type Severity Reaction Status Date / Time sulfamethoxazole Allergy Hives Verified 01/05/18 22:01 [From Bactrim] trimethoprim [From Bactrim] Allergy Hives Verified 01/05/18 22:01 Date of admission: 07/14/18 19:44 Primary care physician: PCP NONE - Constitutional Vitals: Temp Pulse Resp BP Pulse Ox 98 F 77 14 128/85 99 07/18/18 07:45 07/18/18 07:29 07/18/18 07:45 07/18/18 07:45 07/18/18 08:00 General appearance: Present: A&O X 3, no acute distress Exam: Skin: Decreased erythematous area surrounding area that was incised and drained - Patient Status Disposition: Home, Self-Care Condition: Fair - Discharge Instructions Follow Up With: Osvaldo Villalba MD [Non-Partnered Physician] - 07/19/18 1:15 pm (Will see Dr. Villalba in the Wound Care Department.) NONE,PCP [Primary Care Provider] - Additional Instructions: Daily wound care: cleanse with soap and water in the shower and pat dry, pack open area with 1/4 inch plain gauze, cover with dry dressing and tape to secure daily.
[2018-07-18 15:04] VITALS: BP 112/74
== END 2018-07-18 14:56 | disposition home or self-care (01) | DRG 364 ==
LOC: EMEROOARM 12:26 → 3ANU 12:26 → SUATTDRO 17:11 → 3ANU 18:30
PROVIDERS: ADMIT Internal Medicine; ATTEND Hospitalist

== ENCOUNTER 2018-09-17 10:39 | Inpatient (IN) ==
--- NOTE | 2018-09-17 11:57 | Emergency Department Note ---
Disposition Clinical Impression: Abscess, IVDU (intravenous drug user) Disposition: Home, Self-Care Condition: Fair Time of Disposition: 16:36 Wound/Laceration HPI - General Chief Complaint: ED Wound/Laceration Stated Complaint: wound Time Seen by Provider: 09/17/18 10:50 Source: patient Mode of arrival: ambulatory Limitations: no limitations Nursing Notes Reviewed: Yes Vital Signs Reviewed: Yes - History of Present Illness HPI Narrative: Leticia is a pleasant 33 yo F. She presents to the clinic with a CC of cellulitic an abscessed area to the right lateral hip worsening over the past week. She denies recent fevers. She notes that she has a history of cellulitic/abscessed areas and notes that she was admitted recently for one of these infections. She notes past IV drug use. She states that on the way to the ER the area started to drain. Onset (ago): day(s) Extremity Location: Right: hip Patient Tetanus UTD: Yes (Updated in the ED) - Related Data Home Medications Medication Instructions Recorded Confirmed Methadone HCl 95 mg PO DAILY 07/14/18 09/17/18 Allergies Allergy/AdvReac Type Severity Reaction Status Date / Time sulfamethoxazole Allergy Hives Verified 09/17/18 12:18 [From Bactrim] trimethoprim [From Bactrim] Allergy Hives Verified 09/17/18 12:18 All systems ED: reviewed and negative except as stated. Review of Systems: As Per HPI Past Medical History - Past Medical History Medical history: Reports: arthritis Surgical history: Reports: other Psychiatric history: Reports: depression - Social History Smoking Status: Current every day smoker Smokeless Tobacco Status: No Alcohol use: Reports: none Drug use: Reports: none, IV Drug Use, other Physical Exam - General Limitations: no limitations, language barrier General appearance: alert - Head Head exam: atraumatic - Eye Eye exam: Present: normal appearance - Chest Chest inspection: Present: normal inspection, symmetric chest wall rise - Respiratory Respiratory exam: Present: normal lung sounds bilaterally. Absent: respiratory distress, wheezes - Cardiovascular Cardiovascular exam: Present: regular rate, tachycardia - Abdominal Exam Abdominal exam: Present: soft, Non-Tender (obese) - Expanded Lower Extremity Exam Hip/Pelvis exam: Present: tenderness, swelling Upper leg exam: Present: tenderness, swelling (Area of induration measuring 12 cm x 12 cm without any streaking or obvious area of fluctuance in the central area.) Lower leg exam: Present: normal inspection Ankle exam: Present: normal inspection Foot/toe exam: Present: normal inspection Gait: not tested/not observed - Neurological Exam Neurological exam: Present: alert, oriented X3 - Psychiatric Psychiatric exam: Present: normal affect, normal mood Course Vital Signs Temperature 98.1 F 09/17/18 10:53 Pulse Rate 123 09/17/18 10:53 Respiratory Rate 18 09/17/18 10:53 Blood Pressure 125/90 09/17/18 10:53 O2 Sat by Pulse Oximetry 98 09/17/18 10:53 Temperature 98.1 F 09/17/18 11:00 Pulse Rate 95 09/17/18 14:17 Respiratory Rate 20 09/17/18 14:17 Blood Pressure 112/83 09/17/18 14:17 O2 Sat by Pulse Oximetry 100 09/17/18 14:17 Oxygen Delivery Oxygen Delivery Room Air Procedures - Abscess I/D Consent obtained: verbal consent Site: lower extremity (right hip / thigh) Side (if applicable): right Local Anesthetic: lidocaine 2%, bupivacaine 0.5%, with epi Technique: other (10 blade - no current 11 blades in the ED. ) Irrigation: Yes Packing used?: none Complications: pain Wound/Laceration - MDM Narrative Medical decision making narrative: Extensive irrigation and probing revealed a very deep abscess with multiple loculations. Patient was given IV antibiotics started in the emergency room. I consulted with Dr. Waters who agreed to consult on the case following admission to medicine. Consult will be for potential OR washout.
[2018-09-17] MEDS ORDERED: Clindamycin 900 MG/50 ML 900 MG/50 ML IV.SOLN IVPB ONE ×2 (12:04→15:58)
[2018-09-17] MEDS ORDERED: Lidocaine/EPI 1:200k 1% PF 10 ML VIAL INFILT ONE (12:05)
[2018-09-17] MEDS ORDERED: Ketorolac 15 MG/ML VIAL IVP ONE (12:47)
--- NOTE | 2018-09-17 13:11 | Emergency Department Note ---
Disposition Clinical Impression: Abscess of hip, right, Intravenous drug abuse Disposition: Admitted As Inpatient Condition: Fair General Adult HPI - General Chief complaint: ED Wound/Laceration Stated complaint: wound Time Seen by Provider: 09/17/18 10:50 Source: patient Mode of arrival: ambulatory - History of Present Illness Pain Scale: 8 - Related Data Home Medications Medication Instructions Recorded Confirmed Methadone HCl 95 mg PO DAILY 07/14/18 09/17/18 Allergies Allergy/AdvReac Type Severity Reaction Status Date / Time sulfamethoxazole Allergy Hives Verified 09/17/18 12:18 [From Bactrim] trimethoprim [From Bactrim] Allergy Hives Verified 09/17/18 12:18 Past Medical History - Past Medical History Medical history: Reports: arthritis Surgical history: Reports: other Psychiatric history: Reports: depression - Social History Smoking Status: Current every day smoker Smokeless Tobacco Status: No Alcohol use: Reports: none Drug use: Reports: none, IV Drug Use, other Physical Exam - General General appearance: alert Course Vital Signs Temperature 98.1 F 09/17/18 10:53 Pulse Rate 123 09/17/18 10:53 Respiratory Rate 18 09/17/18 10:53 Blood Pressure 125/90 09/17/18 10:53 O2 Sat by Pulse Oximetry 98 09/17/18 10:53 Temperature 98.1 F 09/17/18 11:00 Pulse Rate 95 09/17/18 14:17 Respiratory Rate 20 09/17/18 16:02 Blood Pressure 128/67 09/17/18 16:02 O2 Sat by Pulse Oximetry 100 09/17/18 14:17 Oxygen Delivery Oxygen Delivery Room Air Attestation Statement - Attestation Attestation: For this encounter, I have reviewed the BRICK LOADER or PA documentation, treatment plan, and medical decision making; and I have had face to face time with this patient. Fairly large right hip abscess, superficial with some spontaneous drainage. I was present and available for Dr. Duque incision and drainage, please see her procedure note for full details. Patient has mild tachycardia at the time of my assessment, 108 by my manual count. She is not febrile, does not appear toxic. Has normal mentation. Normal blood pressure. She very much wants to go home unless admission is absolutely necessary. She says that she will be able to come back for recheck tomorrow if she goes home. I think this is a reasonable approach. A dose of IV antibiotics will be given here, and she will be discharged with instructions to return tomorrow for recheck. Area of erythema outlined in the ER prior to discharge.
[2018-09-17] MEDS ORDERED: Ketorolac 15 MG/ML VIAL IM PRN (13:16)
--- NOTE | 2018-09-17 16:39 | Internal Med History&Physical ---
<Lyndsay Ingram - Last Filed: 09/17/18 17:03> Date of Encounter: 09/17/18 Time of Encounter: 16:37 Internal Medicine - H&P: HPI Chief complaint: Right thigh abscess Admitted From: Emergency Dept History of present illness: Ms. Davalos is a 33 year old female with history of hepatitis C, IV drug use currently on methadone who presented to the emergency department for progressively worsening right thigh abscess. Patient states that this began as a small indurated area on the right lateral thigh that has progressively worsened in size and pain over the past week and a half. Reports pain to be a dull ache with increased pain during movement or sitting on the area, no radiation into the groin or knee. States that she did not notice anything prior to this time. States that over the past few days she has had subjective fever and chills with nausea. Has had three episodes of vomiting that are non-bloody. Notes that just prior to arrival to the ER, the abscess busted and broke open, allowing some purulent drainage to escape. She has not been irritating the area, has not picked at the location, has not used IV drugs in over two months. States that she has not seen any PCP or been on any recent antibiotics for this particular concern. She denies any abdominal pain, diarrhea, chest pain, urinary symptoms. No history of abscess to this particular location. Has had multiple abscesses in the past. While in the ER, patient was tachycardic throughout the procedure and on intake, in the room heart rate was 92 bpm. Patient was afebrile. No laboratory work or imaging was performed. I&D was performed with clindamycin dose given. Orthopedics was consulted. Patient was recently admitted on 07/14/18 for left thigh abscess that had I&D performed by Dr. Villalba. Inpatient antibiotics were Vancomycin and Zosyn with Augmentin oral at discharge. Patient states she finished this course. No recurrence on the left thigh. Had follow up performed on 07/[address] Villalba and noted good wound healing at that visit. Wound culture was strep pyogenes positive. Blood cx negative Patient was also seen 01/05/18 for right lower leg abscess was discharged from emergency department on Doxycycline. Patient also seen on 09/05/2017 for similar abscess to the right lower leg, also discharged from emergency department on doxy. Patient also seen 08/08/17 for right temporal abscess with wound culture growing MRSA. However, patient left AMA prior to full course of antibiotics. Past Med Surg Social Fam HX - Past Medical History Medical history: arthritis Additional medical history: on methadone Psychiatric history: depression - Past Surgical History Surgical History: other Additional surgical history: R hand,. throat and nose. I&D left upper leg - Social History Smoking Status: Current every day smoker Smokeless Tobacco Status: No Alcohol use: none Drug use: none, IV Drug Use, other - Family History Grandmother Hx Family Cardiac Disorders: Yes Hx Family Endocrine Disorder: Yes (DM) Grandfather Hx Family Cardiac Disorders: Yes Hx Family Endocrine Disorder: Yes (DM) Internal Medicine - H&P: Meds Methadone HCl 95 mg PO DAILY 07/14/18 [History] Allergy/AdvReac Type Severity Reaction Status Date / Time sulfamethoxazole Allergy Hives Verified 09/17/18 12:18 [From Bactrim] trimethoprim [From Bactrim] Allergy Hives Verified 09/17/18 12:18 All Systems PM: A 10-system review of systems was performed and is negative for pertinent findings except as documented above in the HPI. - Constitutional Constitutional: chills, fever(s), no excessive sweating, no fatigue, no malaise, no weakness - EENT Eyes: no change in vision, no irritation, no loss of vision Ears: no ear pain Nose, mouth and throat: no facial pain, no neck pain, no nose pain, no post-nasa l drip - Cardiovascular Cardiovascular ROS IM: no chest pain, no dyspnea, no dyspnea on exertion, no edema, no lightheadedness, no palpitations, no paroxysmal nocturnal dyspnea, no syncope - Respiratory Respiratory: no cough, no hemoptysis, no dyspnea on exertion, no wheezing - Gastrointestinal Gastrointestinal: nausea, vomiting, no abdominal pain, no change in bowel habits, no constipation, no diarrhea, no loose stools, no melena - Musculoskeletal Musculoskeletal ROS IM: no back pain, no neck pain, no numbness, no stiffness, no tingling Additional comments: affirms pain to the right thigh surrounding abscess - Integumentary Integumentary IM: erythema, new lesions (to the right thigh), no pruritus, no rash - Neurological Neurological ROS: no dizziness, no focal weakness, no headache(s), no weakness - Psychiatric Psychiatric: no confusion, no suicidal ideation, no visual hallucinations - Endocrine Endocrine IM: no fatigue - Constitutional Vitals: Temp Pulse Resp BP Pulse Ox 98.1 F 95 20 128/67 100 09/17/18 11:00 09/17/18 14:17 09/17/18 16:02 09/17/18 16:02 09/17/18 14:17 General appearance: Present: mild distress, A&O X 3, obese Exam: . - Head Head exam: Present: atraumatic, normal inspection, normocephalic - Neck Neck exam general surgery: Present: full ROM, supple. Absent: tenderness - Respiratory Respiratory exam: Present: CTAB. Absent: prolonged expiratory phase, stridor, wheezes - Cardiovascular Cardiovascular exam: Present: RRR. Absent: clicks, gallop, rubs - GI/Abdominal GI/Abdominal exam: Present: normal bowel sounds, soft. Absent: distended, guarding, rigid, tenderness - Extremities Exam Extremities exam: Present: tenderness (to the right upper thigh). Absent: calf tenderness, pedal edema - Back Exam Back exam: Absent: CVA tenderness (L), CVA tenderness (R), tenderness, vertebral tenderness - Neurological Exam Neurological exam: Present: CN II-XII intact, motor sensory deficit, oriented X3 - Psychiatric Psychiatric exam: Present: normal affect, normal mood - Skin Skin exam: Present: erythema (to the right posterior lateral thigh with abscess 6 cm by 7 cm, about 2 cm deep with serosangious purulent drainage, patient S/P ID in the ER, extending erythema around boarders about 4 to 5 cm in all directio ns, redness marked with pen, warm to touch, no crepitus palpated). Absent: rash, urticaria, vesicles - Expanded Skin Exam Full body front and back image: 1 - abscess location - Assessment and plan (1) Abscess of hip, right Current Visit: Yes Status: Acute Assessment and plan: Patient presented to the ER with one and half week history of worsening abscess to the right thigh, subjective fever and chills On arrival, afebrile, tachycardic at 95, normotensive cellulitic changes extending at least 6 cm in all directions from wound edges While in the ED, I&D performed, no packing placed, given one dose of clindamycin Plan CBC, BMP, lactic acid, blood cx, wound cx, PT/ IR CT of the right lower extremity with contrast to be performed after bmp resulted to assess extension Will stop clindamycin and start Vancomycin and Zosyn Will give some fluids as tachycardic Patient has history of MRSA and hx of IV drug use Orthopedics have been consulted (2) DVT prophylaxis Current Visit: No Status: Acute Assessment and plan: Will start sq heparin Promote ambulation (3) Obesity (BMI 30-39.9) Current Visit: No Status: Chronic (4) IVDU (intravenous drug user) Current Visit: Yes Status: Acute Assessment and plan: Patient with history of IVDU, currently on methadone Plan Will continue methadone dosing Pain medication as needed; toradol - Time Spent With Patient Total time spent is greater than 50% in coordination of care (as documented) at patient's floor/unit and/or counseling patient: <RinakristanSranamaria - Last Filed: 09/18/18 09:28> Date of Encounter: 09/17/18 Time of Encounter: 16:50 Internal Medicine - H&P: HPI History of present illness: Ms. Davalos is a 33 year old female All Systems PM: A 10-system review of systems was performed and is negative for pertinent findings except as documented above in the HPI. - Constitutional Vitals: Temp Pulse Resp BP Pulse Ox 98.1 F 67 16 99/65 98 09/18/18 06:14 09/18/18 06:14 09/18/18 06:14 09/18/18 06:14 09/18/18 06:14 Internal Med - H&P Results - Labs CBC & Chem 7: 09/18/18 06:43 09/18/18 06:43 Labs: Short CBC 09/17/18 09/18/18 Range/Units 16:30 06:43 WBC 9.7 7.0 (4.3-11.1) K/mcL Hgb 12.0 11.4 L (11.5-15.4) g/dL Hct 37.2 35.4 (35.3-44.9) % Plt Count 288 252 (140-400) K/mcL Neutrophils # 5.8 3.9 (1.6-8.9) K/mcL BMP 09/17/18 09/18/18 16:30 06:43 Sodium 134 L 136 Potassium 4.0 4.3 Chloride 103 107 Carbon Dioxide 25 25 BUN 15 16 Creatinine 0.65 0.79 Glucose 76 81 Calcium 8.7 8.3 L - Impressions ITS Impressions Lower Extremity CT 09/17/18 16:46 IMPRESSION: 1. Soft tissue defect in the lateral aspect of the proximal right thigh with adjacent subcutaneous fat stranding and skin thickening suggesting cellulitis. No drainable fluid collection. 2. No acute osseous abnormality. D/ / Corby Hale MD / Corby Hale MD Interpreting Provider: Corby Hale MD - Time Spent With Patient Total time spent is greater than 50% in coordination of care (as documented) at patient's floor/unit and/or counseling patient: - Attending Attestation I saw evaluated and examined this patient and my medical decision-making was reviewed with the Resident Physician, Lyndsay Ingram. I agree with the documented findings, disposition and treatment plan as described except to any changes set forth below. We independently had [id number] contact with the patient. Patient with history of recent skin abscess involving her left thigh , history of IV drug abuse who presented to the ER with complaints of pain and swelling involving the right thigh in the upper lateral region close to the hip. She reports that symptoms began about 3 days back and rapidly progress with spreading erythema and swelling in the past 24-48 hours. She therefore came to the ER here. On her way to the ER, it began to drain. In the ER, incision and drainage was attempted but abscess warts noted to be much deeper than expected. As such consulted as such, patient is being hospitalized. Patient reports that she has been having fever, chills. She denies any nausea or vomiting. No diarrhea. She notes that the last time she received antibiotics was about a month back for her left thigh abscess. General: Patient is alert, no acute distress, oriented x 3, obese Head: atraumatic, normocephalic, ENT: Mucous membranes moist Eye: normal appearance, PERRL, no scleral icterus, no conjunctival injection Neck: normal inspection, trachea midline, full ROM, no carotid bruits Chest: normal inspection, symmetric chest rise Respiratory: Good respiratory effort. Normal breath sounds. No wheezing or crackles. Cardiovascular: Regular rate and rhythm. s1 and s2 normal No clicks, rubs, gallops, or murmurs. No pedal edema Abdomen: Abdomen is soft, nontender. Bowel sounds are present Musculoskeletal: Spontaneously moving all extremities, erythema and swelling involving the right upper thigh lateral region. Open in the ER. Wound is open. Not packed. Area of induration measured 12 x 12 cm. Skin: warm, dry, intact. With erythema as described above Neuro: Alert oriented x 3 normal cranial nerves, no focal deficits Psych: Patient's affect is normal Acute right upper thigh abscess: Orthopedics consulted. Will obtain CT scan once labs are normal. Check CBC, basic panel. Blood and wound cultures will be sent. Start patient on vancomycin and Zosyn given her prior history of MRSA once cultures are drawn. Check lactic acid. Moderate risk for complications. History of opiate dependence: Patient has history of drug abuse but has not been using any IV drugs for months. She is on methadone which she will continue. DVT prophylaxis with subcutaneous heparin
[2018-09-17] MEDS ORDERED: 0.9 % Sodium Chloride 1,000 ML IVC SCH (16:45)
[2018-09-17] MEDS ORDERED: Isovue-370 500 ML INFUS..BTL IV ONE (16:46)
--- NOTE | 2018-09-17 16:59 | Event Note ---
Date of Encounter: 09/17/18 Time of Encounter: 16:53 Patient with history of recent skin abscess involving her left thigh , history of IV drug abuse who presented to the ER with complaints of pain and swelling involving the right thigh in the upper lateral region close to the hip. She reports that symptoms began about 3 days back and rapidly progress with spreading erythema and swelling in the past 24-48 hours. She therefore came to the ER here. On her way to the ER, it began to drain. In the ER, incision and drainage was attempted but abscess warts noted to be much deeper than expected. As such consulted as such, patient is being hospitalized. Patient reports that she has been having fever, chills. She denies any nausea or vomiting. No diarrhea. She notes that the last time she received antibiotics was about a month back for her left thigh abscess. General: Patient is alert, no acute distress, oriented x 3, obese Head: atraumatic, normocephalic, ENT: Mucous membranes moist Eye: normal appearance, PERRL, no scleral icterus, no conjunctival injection Neck: normal inspection, trachea midline, full ROM, no carotid bruits Chest: normal inspection, symmetric chest rise Respiratory: Good respiratory effort. Normal breath sounds. No wheezing or crackles. Cardiovascular: Regular rate and rhythm. s1 and s2 normal No clicks, rubs, gallops, or murmurs. No pedal edema Abdomen: Abdomen is soft, nontender. Bowel sounds are present Musculoskeletal: Spontaneously moving all extremities, erythema and swelling i nvolving the right upper thigh lateral region. Open in the ER. Wound is open. Not packed. Area of induration measured 12 x 12 cm. Skin: warm, dry, intact. With erythema as described above Neuro: Alert oriented x 3 normal cranial nerves, no focal deficits Psych: Patient's affect is normal Acute right upper thigh abscess: Orthopedics consulted. Will obtain CT scan once labs are normal. Check CBC, basic panel. Blood and wound cultures will be sent. Start patient on vancomycin and Zosyn given her prior history of MRSA once cultures are drawn. Check lactic acid. Moderate risk for complications. History of opiate dependence: Patient has history of drug abuse but has not been using any IV drugs for months. She is on methadone which she will continue. DVT prophylaxis with subcutaneous heparin
[2018-09-17] MEDS ORDERED: Naloxone 0.4 MG/ML INJ IVP PRN (17:31)
[2018-09-17] MEDS ORDERED: Ondansetron ODT 4 MG TAB.RAPDIS SL PRN (17:31)
[2018-09-17 17:36] LABS: Basophils # 0.1 K/mcL (0.0-0.2); Eosinophils # 0.4 K/mcL (0.0-0.6); Eosinophils % 4.4 %; Hematocrit 37.2 % (35.3-44.9); Immature Granulocytes % 0.7 % (0-4); Lymphocytes # 2.4 K/mcL (0.6-4.6); Lymphocytes % 24.6 %; Mean Corpuscular HGB Conc 32.3 g/dL (31.6-35.5); Mean Corpuscular Volume 83.8 fL (83.0-100.0); Mean Platelet Volume 8.7 fL (9.4-12.4); Monocytes # 0.9 K/mcL (0.0-1.3); Monocytes % 9.7 %; Neutrophils # 5.8 K/mcL (1.6-8.9); Platelet Count 288 K/mcL (140-400); Red Blood Count 4.44 M/mcL (3.82-4.97); Red Cell Distribution Width 13.2 % (11.5-14.5); Segmented Neutrophils % 59.6 %
[2018-09-17] MEDS: *HR* Heparin 5,000 UNIT/ML VIAL SQ SCH (17:50)
[2018-09-17 17:51] LABS: BUN/Creatinine Ratio 23 (6-26); Blood Urea Nitrogen 15 mg/dL (6-20); Calcium 8.7 mg/dL (8.6-10.3); Carbon Dioxide 25 mEq/L (23-29); Chloride 103 mEq/L (98-107); Glucose 76 mg/dL (70-105); Osmolality,Calculated 278 (280-300); Sodium 134 mEq/L (136-145); eGFR For Non-African Americans > 60 (> 60)
[2018-09-17 19:12] LABS: INR 1.2
[2018-09-17] MEDS: Ketorolac 15 MG/ML VIAL IVP PRN (21:08)
[2018-09-17] MEDS: Piperacillin/Tazobactam 3.375 GM in 0.9 % Sodium Chloride Mini Bag 100 ML IVPB SCH (23:49)
[2018-09-18] MEDS: Ketorolac 15 MG/ML VIAL IVP PRN ×3 (03:16→23:17)
[2018-09-18] MEDS: *HR* Heparin 5,000 UNIT/ML VIAL SQ SCH ×2 (06:18→17:49)
[2018-09-18] MEDS ORDERED: Lidocaine -MPF 4% 5 ML AMPUL ONE (07:14)
[2018-09-18] MEDS ORDERED: Lidocaine -MPF 2% 2 ML VIAL ONE (07:14)
[2018-09-18] MEDS ORDERED: *HR* Succinylcholine 200 MG/10 ML VIAL IVP ONE (07:14)
[2018-09-18] MEDS ORDERED: Dexamethasone 4 MG/ML VIAL ONE ×2 (07:14→07:19)
[2018-09-18] MEDS ORDERED: Ondansetron 4 MG/2 ML VIAL ONE (07:14)
[2018-09-18] MEDS ORDERED: *HR* Midazolam HCl 2 MG/2 ML VIAL ONE (07:21)
[2018-09-18] MEDS ORDERED: *HR* Propofol 200 MG/20 ML VIAL IVP ONE (07:21)
[2018-09-18] MEDS ORDERED: *HR* FentaNYL (PF) 100 MCG/2 ML VIAL ONE (07:21)
[2018-09-18 07:26] LABS: Basophils # 0.1 K/mcL (0.0-0.2); Basophils % 1.2 %; Eosinophils # 0.5 K/mcL (0.0-0.6); Eosinophils % 7.5 %; Hematocrit 35.4 % (35.3-44.9); Hemoglobin 11.4 g/dL (11.5-15.4); Immature Granulocytes % 0.6 % (0-4); Lymphocytes # 1.8 K/mcL (0.6-4.6); Lymphocytes % 25.9 %; Mean Corpuscular HGB Conc 32.2 g/dL (31.6-35.5); Mean Corpuscular Hemoglobin 27.1 pg (28.0-33.3); Mean Corpuscular Volume 84.1 fL (83.0-100.0); Mean Platelet Volume 9.2 fL (9.4-12.4); Monocytes # 0.7 K/mcL (0.0-1.3); Monocytes % 9.5 %; Neutrophils # 3.9 K/mcL (1.6-8.9); Platelet Count 252 K/mcL (140-400); Red Blood Count 4.21 M/mcL (3.82-4.97); Red Cell Distribution Width 13.2 % (11.5-14.5); Segmented Neutrophils % 55.3 %
--- NOTE | 2018-09-18 07:27 | Anesthesia Evaluation PreOp ---
Date of Encounter: 09/18/18 Time of Encounter: 07:35 - Past History Planned Operation: Incision Drainage Rt Hip Cardiac History: Denies any Significant Hx Pulmonary History: Smoker A[employer] D[employer]ER History: Denies Any Significant HX Other Medical History: Hepatic Anesthesia History: No Prior Anesthetic Complications : No Test: Negative Alcohol Use: none Drug use: none, IV Drug Use (on methadone), other Medications and Allergies Methadone HCl 95 mg PO DAILY 07/14/18 [History] Allergy/AdvReac Type Severity Reaction Status Date / Time sulfamethoxazole Allergy Hives Verified 09/17/18 12:18 [From Bactrim] trimethoprim [From Bactrim] Allergy Hives Verified 09/17/18 12:18 - Meds/Allergy Pre-op Review Medications Reviewed: Yes Allergies Reviewed: Yes Beta Blockers on Current Med List: No Anesthesia Results - Labs 09/17/18 16:30 09/17/18 16:30 Anesthesia Exam O2 Sat Height 1.65 m Height 1.65 m Weight 105 kg Weight 104.326 kg Weight 104.326 kg O2 Sat by Pulse Oximetry 98 O2 Sat by Pulse Oximetry 98 O2 Sat by Pulse Oximetry 99 O2 Sat by Pulse Oximetry 99 O2 Sat by Pulse Oximetry 100 O2 Sat by Pulse Oximetry 99 O2 Sat by Pulse Oximetry 98 O2 Sat by Pulse Oximetry 98 O2 Sat by Pulse Oximetry 98 Vital Signs Temp Pulse Resp BP Pulse Ox 98.1 F 123 18 125/90 98 09/17/18 10:53 09/17/18 10:53 09/17/18 10:53 09/17/18 10:53 09/17/18 10:53 Height: 5'5 Weight: 231 lbs NPO (# of Hours): MN Pain Scale: 0 - HEENT Pupil (Motor): Pupils equal, EOMI Mallampati: II Oral Opening: Greater than 3 - A[employer] D[employer]ER LOC: Oriented [employer]ER Motor: Normal RUE, Normal LUE, Normal RLE, Normal LLE, Normal Face [employer] Sensory: Normal: RUE, LUE, RLE, LLE, Face - Cardiac Rhythm: Regular Murmur: None JVD: No Carotid Bruit: No - Pulmonary Breath Sounds: bilateral Clear Respiratory Effort: Symmetrical Anesthesia Assess/Plan ASA Score: 2 Level of consciousness: Cooperative Anesthetic Plan: General Autologous Blood: No Monitoring Plan: Standard Monitors Recovery Plan: PACU (Discussed GA, agrees to proceed)
[2018-09-18] MEDS: Piperacillin/Tazobactam 3.375 GM in 0.9 % Sodium Chloride Mini Bag 100 ML IVPB SCH ×3 (07:35→23:20)
[2018-09-18] MEDS: Methadone Oral Concentrate 50 MG/5 ML UDC PO SCH ×2 (07:40→11:12)
[2018-09-18] MEDS ORDERED: Albuterol 2.5 MG/3 ML NEBULIZER IH ONE (07:49)
[2018-09-18 07:50] LABS: BUN/Creatinine Ratio 20 (6-26); Blood Urea Nitrogen 16 mg/dL (6-20); Calcium 8.3 mg/dL (8.6-10.3); Carbon Dioxide 25 mEq/L (23-29); Chloride 107 mEq/L (98-107); Glucose 81 mg/dL (70-105); Osmolality,Calculated 282 (280-300); Potassium 4.3 mEq/L (3.5-5.1); Sodium 136 mEq/L (136-145); eGFR For Non-African Americans > 60 (> 60)
[2018-09-18] MEDS ORDERED: Ethanol\\Acetic Acid\\Na Ace\\Ben 1,000 ML IRRIG.SOLN IR ONE (07:51)
[2018-09-18] MEDS ORDERED: Albuterol 2.5 MG/3 ML NEBULIZER ONE (07:52)
--- NOTE | 2018-09-18 08:02 | History & Physical Report ---
Date of Encounter: 09/18/18 Time of Encounter: 08:02 24 Hour HP Update - Instructions Instructions: If the History and Physical is less than 30 days old and was completed prior to A.M. admission and or procedure and has NOT been updated on calendar day of procedure please complete this update prior to performing procedure. - Update Patient reports changes in Medical Condition: No Changes in examination, assessment, or condition: No Changes in Medication: No Preop tests/diagnostics Reviewed: Yes Surgery Remains Indicated: Yes Consent for Planned Operative Procedure(s) Verified: Yes
--- NOTE | 2018-09-18 08:20 | Orthopedic Consult Note ---
Date of Encounter: 09/18/18 Time of Encounter: 08:18 Assessment and Plan (1) Abscess of hip, right Current Visit: Yes Status: Acute After discussing the pros and cons of treatment options including non-operative and operative intervention, the patient has elected to proceed with irrigation and debridement of the right hip and thigh at this time. The risks and benefits of the procedure were fully explained in detail, including but not limited to the risk of infection, neurovascular injury, continued pain or stiffness, failure of surgery, reinjury, or need for additional surgery, DVT, PE, general risks of anesthesia and loss of limb or life. No guarantees were given or implied and all questions were answered. The patient understands all the risks and does wish to proceed with written consent. Surgery will be scheduled in a timely manner. History of Present Illness HPI: Ms. Davalos is a 33 year old female with history of hepatitis C, IV drug use currently on methadone who was admitted for right lateral thigh abscess. Area of swelling, erythema and fluctuance is increased over the past week and half. Pain is localized to the lateral aspect of the right thigh. Worse when laying on the thigh. Denies groin pain or pain with ambulation. She has noticed fevers and chills. He has a history of multiple abscesses of the extremities that have been previously I&D. She was admitted last night after bedside I&D in the emergency department for definitive management with orthopedic consult and antibiotics. Past Med Surg Social Fam HX - Past Medical History Medical history: arthritis Additional medical history: on methadone Psychiatric history: depression - Past Surgical History Surgical History: other Additional surgical history: R hand,. throat and nose. I&D left upper leg - Social History Smoking Status: Current every day smoker Packs per day: 1/2 pack a day Smokeless Tobacco Status: No Alcohol use: none Drug use: none, IV Drug Use (on methadone), other - Family History Grandmother Hx Family Cardiac Disorders: Yes Hx Family Endocrine Disorder: Yes (DM) Grandfather Hx Family Cardiac Disorders: Yes Hx Family Endocrine Disorder: Yes (DM) Medications and Allergies Methadone HCl 95 mg PO DAILY 07/14/18 [History] Allergy/AdvReac Type Severity Reaction Status Date / Time sulfamethoxazole Allergy Hives Verified 09/17/18 12:18 [From Bactrim] trimethoprim [From Bactrim] Allergy Hives Verified 09/17/18 12:18 All Systems Reviewed: The remainder of the systems were reviewed and are negative except as noted in the history of present illness Physical Exam - Constitutional Vitals: Temp Pulse Resp BP Pulse Ox 98.1 F 67 16 99/65 98 09/18/18 06:14 09/18/18 06:14 09/18/18 06:14 09/18/18 06:14 09/18/18 06:14 Exam: Consult Exam: Constitutional -Vitals reviewed -The patient is well developed and well nourished. -Mood is pleasant. -The patient is well groomed. Psychiatric -The patient is fully alert and oriented x 3. Respiratory: -Respiratory effort normal Abdomen: -Soft abdomen -Non tender -Non distended: Left upper extremity: -No deformities. The overlying skin is intact. No obvious signs of acute trauma. -No tenderness to palpation throughout. -No significant pain with passive motion of the shoulder, elbow, wrist, and fingers within the limits of the bed. -Able to make an "OK" sign, cross the index and long fingers, and extend the thumb. -Sensation grossly intact to light touch throughout the median, radial, and ulnar distributions. -Radial pulse is present; Fingers have good capillary refill. Right upper extremity: -No deformities. The overlying skin is intact. No obvious signs of acute trauma. -No tenderness to palpation throughout. -No significant pain with passive motion of the shoulder, elbow, wrist, and fingers within the limits of the bed. -Able to make an "OK" sign, cross the index and long fingers, and extend the thumb. -Sensation grossly intact to light touch throughout the median, radial, and ulnar distributions. -Radial pulse is present; Fingers have good capillary refill. Left lower extremity: -No deformities. The overlying skin is intact. No obvious signs of acute trauma. -No tenderness to palpation throughout. -No pain with passive motion of the hip, knee, ankle, and toes within the limits of the bed. -No pain with axial loading of the thigh. -Able to dorsiflex and plantarflex the ankle and toes. -Sensation is grossly intact to light touch throughout the sural, saphenous, superficial peroneal, and deep peroneal distributions. -Toes have good capillary refill. Right lower extremity: -Open draining wound of the right lateral thigh surrounding erythema and fluctuance. There is some purulent drainage noted. She is tender to palpation over the wound. -No pain with passive motion of the hip, knee, ankle, and toes within the limits of the bed. -No pain with axial loading of the thigh. -Able to dorsiflex and plantarflex the ankle and toes. -Sensation is grossly intact to light touch throughout the sural, saphenous, superficial peroneal, and deep peroneal distributions. -Toes have good capillary refill. Results - Labs Result Diagrams: 09/18/18 06:43 09/18/18 06:43 Labs: Abnormal lab results Hgb 11.4 g/dL (11.5-15.4) L 09/18/18 06:43 MCH 27.1 pg (28.0-33.3) L 09/18/18 06:43 MPV 9.2 fL (9.4-12.4) L 09/18/18 06:43 PT 14.0 Seconds (9.4-12.1) H 09/17/18 18:53 Calcium 8.3 mg/dL (8.6-10.3) L 09/18/18 06:43 H & H 09/17/18 09/18/18 Range/Units 16:30 06:43 Hgb 12.0 11.4 L (11.5-15.4) g/dL Hct 37.2 35.4 (35.3-44.9) % All other labs normal. - Diagnostic results Hip CT: report reviewed Consult Discharge Plan - Plan Referrals: NONE,PCP [Primary Care Provider] -
[2018-09-18] MEDS ORDERED: Ketorolac 30 MG/ML VIAL ONE (08:29)
--- NOTE | 2018-09-18 08:36 | Internal Med Progress Note ---
<Lyndsay Ingram - Last Filed: 09/18/18 15:02> Hospitalist Progress Note - Encounter Date of Encounter: 09/18/18 Time of Encounter: 15:02 - Exam Vitals: Temp Pulse Resp BP Pulse Ox 98.1 F 67 16 99/65 98 09/18/18 06:14 09/18/18 06:14 09/18/18 06:14 09/18/18 06:14 09/18/18 06:14 Exam: Gen.: Patient is alert, sitting in bed watching television, pleasant and conversational. In no apparent aware acute distress HEENT: Atraumatic, normocephalic, extraocular motor intact Chest: Regular rate and rhythm, no murmurs gallops or rubs Respiratory: Clear to auscultation bilaterally, no wheezing or rhonchi or reveals Abdomen: Abdomen soft, nontender, no guarding or rebound Skin: Gauze and bandage are placed over the right lateral thigh, this was not removed as it was just placed following surgery today, no further redness or swelling was noted beyond the bandage. Neuro: Alert and oriented 3, sensation intact distally to wound . - Assessment and Plan (1) Abscess of hip, right Current Visit: Yes Status: Acute Assessment and Plan: CT of the right lower extremity was consistent with cellulitis along with a soft tissue defect in the lateral aspects of the proximal right thigh. No drainable fluid collection. No acute osseous abnormality was found. Since admission patient has remained afebrile, normotensive. While in the room patient's heart rate is 74 bpm Consult to orthopedics was performed, S/P irrigation debridement of the right hip and thigh this morning. I had seen patient following this procedure and appears to be doing well, no acute distress and no further complaints CBC relatively unremarkable, WBC at 7.0, hemoglobin is 11.4. Lactic acid is 1.0, BMP is within normal limits. Currently awaiting blood culture and wound cultures. PT/INR is within normal limits. Plan Continue vancomycin day 2, Zosyn day 2 Plan to discharge pending orthopedics recommendations. Will discharge patient on clindamycin 450 mg every 6 hours oral along with a prescription for lactobacillus. Pain control with Tylenol and Toradol (2) DVT prophylaxis Current Visit: No Status: Acute Assessment and Plan: Continue with sq hep (3) Obesity (BMI 30-39.9) Current Visit: No Status: Chronic Assessment and Plan: Continue with healthy diet (4) IVDU (intravenous drug user) Current Visit: Yes Status: Acute Assessment and Plan: Continue with methadone home dose - Time Spent with Patient Total time spent is greater than 50% in coordination of care (as documented) at patient's floor/unit and/or counseling patient: Internal Medicine: Result - Labs CBC & Chem 7: 09/18/18 06:43 09/18/18 06:43 Labs: Short CBC 09/17/18 09/18/18 Range/Units 16:30 06:43 WBC 9.7 7.0 (4.3-11.1) K/mcL Hgb 12.0 11.4 L (11.5-15.4) g/dL Hct 37.2 35.4 (35.3-44.9) % Plt Count 288 252 (140-400) K/mcL Neutrophils # 5.8 3.9 (1.6-8.9) K/mcL BMP 09/17/18 09/18/18 16:30 06:43 Sodium 134 L 136 Potassium 4.0 4.3 Chloride 103 107 Carbon Dioxide 25 25 BUN 15 16 Creatinine 0.65 0.79 Glucose 76 81 Calcium 8.7 8.3 L - ABG Interpretation ABG results: PT/INR, D-dimer PT 14.0 Seconds (9.4-12.1) H 09/17/18 18:53 - Impressions Impressions Lower Extremity CT 09/17/18 16:46 IMPRESSION: 1. Soft tissue defect in the lateral aspect of the proximal right thigh with adjacent subcutaneous fat stranding and skin thickening suggesting cellulitis. No drainable fluid collection. 2. No acute osseous abnormality. D/ / Corby Hale MD / Corby Hale MD Interpreting Provider: Corby Hale MD Consult Discharge Plan - Plan Referrals: NONE,PCP [Primary Care Provider] - <Jorge Ventura - Last Filed: 09/18/18 15:18> Hospitalist Progress Note - Encounter Date of Encounter: 09/18/18 - Exam Vitals: Temp Pulse Resp BP Pulse Ox 98.2 F 82 16 100/69 95 09/18/18 13:35 09/18/18 13:35 09/18/18 13:35 09/18/18 13:35 09/18/18 13:35 - Time Spent with Patient Total time spent is greater than 50% in coordination of care (as documented) at patient's floor/unit and/or counseling patient: Internal Medicine: Result - Labs CBC & Chem 7: 09/18/18 06:43 09/18/18 06:43 Labs: Short CBC 09/17/18 09/18/18 Range/Units 16:30 06:43 WBC 9.7 7.0 (4.3-11.1) K/mcL Hgb 12.0 11.4 L (11.5-15.4) g/dL Hct 37.2 35.4 (35.3-44.9) % Plt Count 288 252 (140-400) K/mcL Neutrophils # 5.8 3.9 (1.6-8.9) K/mcL BMP 09/17/18 09/18/18 16:30 06:43 Sodium 134 L 136 Potassium 4.0 4.3 Chloride 103 107 Carbon Dioxide 25 25 BUN 15 16 Creatinine 0.65 0.79 Glucose 76 81 Calcium 8.7 8.3 L - ABG Interpretation ABG results: PT/INR, D-dimer PT 14.0 Seconds (9.4-12.1) H 09/17/18 18:53 - Impressions Impressions Lower Extremity CT 09/17/18 16:46 IMPRESSION: 1. Soft tissue defect in the lateral aspect of the proximal right thigh with adjacent subcutaneous fat stranding and skin thickening suggesting cellulitis. No drainable fluid collection. 2. No acute osseous abnormality. D/ / Corby Hale MD / Corby Hale MD Interpreting Provider: Corby Hale MD - Attending Attestation I saw evaluated and examined this patient and my medical decision-making was reviewed with the Resident Physician, Lyndsay Ingram. I agree with the documented findings, disposition and treatment plan as described except to any changes set forth below. We independently had [id number] contact with the patient. Patient was taken to the OR today for incision and drainage of right thigh abscess. Evaluated patient postprocedure. She is doing well. Pain in the right thigh well-controlled. No fever reported overnight. She is requesting a nicotine patch. She smokes at least a pack a day. No other complaints at this time. On exam, patient is awake and alert. Doing well overall. S1 and S2 are normal. Breath sounds are normal. Abdomen is soft, nontender. Surgical site bandaged in right thigh. Acute right upper thigh abscess: Continue IV antibiotics. I&D done today. Will follow culture results. Monitor vital signs closely. History of opiate dependence: Continue methadone. Tobacco abuse: Nicotine patch started. DVT prophylaxis with subcutaneous heparin
[2018-09-18] MEDS ORDERED: *HR* Promethazine 25 MG/ML VIAL IVP PRN (08:48)
[2018-09-18] MEDS ORDERED: Ringers Solution, Lactated 1,000 ML ONE (09:20)
--- NOTE | 2018-09-18 10:08 | Anesthesia Evaluation Post Op ---
Date of Encounter: 09/18/18 Time of Encounter: 10:00 - Vital Signs Vital Signs: Vital Signs/O2 Sat/Glucose, Most Current Temp Pulse Resp BP Pulse Ox 09/18/18 09:58 98.3 F 84 16 107/72 98 09/18/18 09:48 98.3 F 86 20 105/66 98 09/18/18 09:38 85 20 102/66 97 09/18/18 09:28 93 20 101/65 93 09/18/18 09:18 99.4 F 92 22 97 09/18/18 06:14 98.1 F 67 16 99/65 98 - Lungs Lungs: Clear Ascult./Percussion - Airway Airway: Non-obstructed - Cardiovascular Regular Rate - Mental Status Mental Status: Alert & Oriented, Answers Appropriately - Pain Pain Scale: 1 - Nausea Vomiting Nausea Vomiting: Not Present - Hydration Hydration: Ice chips - Discharge PostOp Status: Transfer Patient to floor
[2018-09-18] MEDS: Nicotine 21 MG PATCH.TD24 TD SCH (13:40)
[2018-09-18] MEDS ORDERED: CeFAZolin Syr 2,000MG/20 ML 2,000 MG/20 ML SYRINGE IVPB ONE (16:30)
[2018-09-18] MEDS: Acetaminophen 325 MG TABLET PO PRN (20:44)
[2018-09-19] MEDS: Acetaminophen 325 MG TABLET PO PRN (03:59)
[2018-09-19 05:58] LABS: Basophils # 0.1 K/mcL (0.0-0.2); Basophils % 0.5 %; Eosinophils % 0.1 %; Hematocrit 32.5 % (35.3-44.9); Hemoglobin 10.4 g/dL (11.5-15.4); Immature Granulocytes % 0.4 % (0-4); Lymphocytes # 1.5 K/mcL (0.6-4.6); Lymphocytes % 15.5 %; Mean Corpuscular Hemoglobin 27.2 pg (28.0-33.3); Mean Corpuscular Volume 85.1 fL (83.0-100.0); Mean Platelet Volume 9.3 fL (9.4-12.4); Monocytes # 0.9 K/mcL (0.0-1.3); Platelet Count 231 K/mcL (140-400); Red Blood Count 3.82 M/mcL (3.82-4.97); Red Cell Distribution Width 13.1 % (11.5-14.5); Segmented Neutrophils % 74.5 %
[2018-09-19 06:03] LABS: BUN/Creatinine Ratio 20 (6-26); Blood Urea Nitrogen 18 mg/dL (6-20); Calcium 8.2 mg/dL (8.6-10.3); Carbon Dioxide 23 mEq/L (23-29); Chloride 108 mEq/L (98-107); Glucose 120 mg/dL (70-105); Osmolality,Calculated 287 (280-300); Potassium 4.6 mEq/L (3.5-5.1); Sodium 137 mEq/L (136-145); eGFR For Non-African Americans > 60 (> 60)
[2018-09-19] MEDS: Ketorolac 15 MG/ML VIAL IVP PRN ×3 (06:15→18:27)
[2018-09-19] MEDS: *HR* Heparin 5,000 UNIT/ML VIAL SQ SCH ×2 (06:15→18:07)
--- NOTE | 2018-09-19 08:13 | Orthopedic Operative Note ---
Date of procedure: 09/19/18 Procedure: Procedure: Right hip deep abscess irrigation and debridement Preoperative Diagnosis: Right hip deep abscess Postoperative Diagnosis: Same Surgeon: Zaid Waters MD Tool And Die Manager: None EBL: 20 cc Anesthesia: General Complications: None INDICATIONS: This is a 33 yo F who was admitted to the hospital with a right lateral hip abscess and surrounding cellulitis after failing outpatient management. Over several days she had developed pain and significant swelling over the hip. She also developed significant erythema over the site. She had continued pain and swelling despite attempts at bedside I&D in the ED and IV antibiotics. Due to the continued pain, swelling and erythema the patient elected for operative management with right hip deep abscess irrigation and debridement. The risks and benefits of the procedure were fully explained. Those risks include but are not limited to, infection, neurovascular injury, continued pain, arthritis, stiffness, further injury, need for further surgery, DVT, PE, loss of limb, and loss of life. The patient understood all of these risks and wished to proceed. Informed consent was obtained. OPERATIVE REPORT: The patient was identified in the holding area. The right lower extremity was marked, the patient was taken to the operating room and placed in the lateral position. All bony prominences were well padded. The anesthesiologist performed successful general anesthetic for the remainder of th e case. Preoperative antibiotics were being given on the floor prior to the procedure. A surgical time out protocol was then performed. An incision was extended over the lateral aspect of the right hip, encompassing and excising the open draining area of the previous I&D. Bovie was used to coagulate any skin bleeders. Necrotic skin and deep tissue was sharply excised. A deep pocket of fluid deep to the fascia was opened and cultured. There was no gross purulence. Necrotic tissue overyling the muscle was then debrided and irrigated with a liter of bactisure and 3L normal saline. Any remaining adhesions were broken up and no further fluid pockets were encountered. The wound was then again thoroughly irrigated with normal saline. The incision was then closed with 2-0 Monocryl subcutaneous and then skin was closed with nathaniel. Sterile dressing was placed. Patient was awoken by anesthesia and taken the PACU in stable condition. There were no complications Was there an internal medicine physician assistant present: No Estimated blood loss (cc): 20
--- NOTE | 2018-09-19 08:52 | Orthopedics Progress Note ---
Date of Encounter: 09/19/18 Time of Encounter: 08:49 - Assessment and Plan (1) Abscess of hip, right Current Visit: Yes Status: Acute Subjective Interval history: Doing fine s/p R hip I&D. Pain present but improving. No fevers or chills. AFVSS Ctx: Gram positive cocci GEN: NAD, AAOx3 RLE: Hip with surrounding erythema, diminished within demarcation Drainage from incision - nonpurulent DNVI to motor/sensory exam POD#1 s/p R hip I&D Continue Atbx per hospitalist Daily dressing changes WBAT Continue to follow exam Objective Vital signs: Vital Signs Temp Pulse Resp BP Pulse Ox 09/19/18 06:51 97.7 F 83 16 124/86 97 09/19/18 03:38 98.4 F 68 14 97/62 09/18/18 18:52 97.7 F 91 15 112/73 94 09/18/18 13:35 98.2 F 82 16 100/69 95 09/18/18 12:20 98.2 F 80 16 94/61 95 09/18/18 11:10 98.2 F 83 16 102/72 97 09/18/18 10:35 98.3 F 84 16 93/63 98 09/18/18 10:10 97.8 F 82 16 95/63 97 09/18/18 09:58 98.3 F 84 16 107/72 98 09/18/18 09:48 98.3 F 86 20 105/66 98 09/18/18 09:38 85 20 102/66 97 09/18/18 09:28 93 20 101/65 93 09/18/18 09:18 99.4 F 92 22 97 Intake and Output 09/18/18 09/19/18 09/19/18 23:59 07:59 15:59 Intake Total 950 / 950 100 / 100 250 / 250 Output Total 0 / 0 1200 / 1200 Balance 950 / 950 -1100 / -1100 250 / 250 Intake: IV Fluids 350 / 350 100 / 100 250 / 250 Zosyn 3.375 GM In 0.9 % Sodium 100 / 100 100 / 100 Chloride (Mini-Bag +) 100 ML @ 25 mls/hr IVPB Q8HR [facility] Rx#: [id number] Vancocin 1,500 MG In 0.9 % 250 / 250 250 / 250 Sodium Chloride 250 ML @ 166. 667 mls/hr IVPB Q12H [facility] Rx#: [id number] Oral 600 / 600 Output: Urine 0 / 0 1200 / 1200 Other: Meal Dinner Percent of Meal Consumed 100% - Labs CBC & BMP: 09/19/18 05:19 09/19/18 05:19 Labs: Abnormal lab results Hgb 10.4 g/dL (11.5-15.4) L 09/19/18 05:19 Hct 32.5 % (35.3-44.9) L 09/19/18 05:19 MCH 27.2 pg (28.0-33.3) L 09/19/18 05:19 MPV 9.3 fL (9.4-12.4) L 09/19/18 05:19 PT 14.0 Seconds (9.4-12.1) H 09/17/18 18:53 Chloride 108 mEq/L (98-107) H 09/19/18 05:19 Glucose 120 mg/dL (70-105) H 09/19/18 05:19 Calcium 8.2 mg/dL (8.6-10.3) L 09/19/18 05:19 Vancomycin Trough 12 mcg/mL (5-10) H 09/19/18 05:19 Consult Discharge Plan - Plan Referrals: NONE,PCP [Primary Care Provider] -
[2018-09-19] MEDS: Piperacillin/Tazobactam 3.375 GM in 0.9 % Sodium Chloride Mini Bag 100 ML IVPB SCH ×2 (09:59→18:06)
[2018-09-19] MEDS: Nicotine 21 MG PATCH.TD24 TD SCH (10:00)
[2018-09-19] MEDS: Methadone Oral Concentrate 50 MG/5 ML UDC PO SCH (11:01)
--- NOTE | 2018-09-19 14:25 | Internal Med Progress Note ---
Hospitalist Progress Note - Encounter Date of Encounter: 09/19/18 Time of Encounter: 14:23 - Subjective Interval History: Evaluated patient earlier today. Doing well since her incision and drainage done yesterday. No fevers or chills reported. Pain in right hip is well controlled. - Exam Vitals: Temp Pulse Resp BP Pulse Ox 97.7 F 83 16 124/86 97 09/19/18 06:51 09/19/18 06:51 09/19/18 06:51 09/19/18 06:51 09/19/18 06:51 Exam: General: Patient is alert, no acute distress, oriented x 3 Respiratory: Good respiratory effort. Normal breath sounds. No wheezing or crackles. Cardiovascular: Regular rate and rhythm. s1 and s2 normal No clicks, rubs, gallops, or murmurs. No pedal edema Abdomen: Abdomen is soft, nontender. Bowel sounds are present Musculoskeletal: Spontaneously moving all extremities Skin: warm, dry, intact, right hip wound bandaged Neuro: Alert oriented x 3 normal cranial nerves, no focal deficits - Assessment and Plan (1) Abscess of hip, right Current Visit: Yes Status: Acute Assessment and Plan: Deep abscess involving the right hip region. Status post incision and drainage. Postop day 1. Orthopedics following. Wound culture growing gram- positive cocci presumptively MRSA. Blood cultures are negative. Will continue vancomycin and Zosyn. Consider de-escalating and changing to oral antibiotics based on orthopedic recommendations and culture results tomorrow. Continue local wound care. (2) Opioid dependence Current Visit: Yes Status: Chronic Assessment and Plan: Continue methadone (3) Tobacco dependence Current Visit: Yes Status: Chronic Assessment and Plan: Continue nicotine patch DVT Prophylaxis: With subcutaneous heparin - Time Spent with Patient Total time spent is greater than 50% in coordination of care (as documented) at patient's floor/unit and/or counseling patient: Internal Medicine: Result - Labs CBC & Chem 7: 09/19/18 05:19 09/19/18 05:19 Labs: Short CBC 09/19/18 Range/Units 05:19 WBC 9.4 (4.3-11.1) K/mcL Hgb 10.4 L (11.5-15.4) g/dL Hct 32.5 L (35.3-44.9) % Plt Count 231 (140-400) K/mcL Neutrophils # 7.0 (1.6-8.9) K/mcL BMP 09/19/18 05:19 Sodium 137 Potassium 4.6 Chloride 108 H Carbon Dioxide 23 BUN 18 Creatinine 0.89 Glucose 120 H Calcium 8.2 L - ABG Interpretation ABG results: PT/INR, D-dimer PT 14.0 Seconds (9.4-12.1) H 09/17/18 18:53 Consult Discharge Plan - Plan Referrals: NONE,PCP [Primary Care Provider] - (2) Opioid dependence Qualifiers: Substance use status: in remission Qualified Code(s): F11.21 - Opioid dependence, in remission
[2018-09-20] MEDS: Piperacillin/Tazobactam 3.375 GM in 0.9 % Sodium Chloride Mini Bag 100 ML IVPB SCH ×2 (00:09→09:07)
[2018-09-20] MEDS: Ketorolac 15 MG/ML VIAL IVP PRN ×2 (00:56→10:02)
[2018-09-20] MEDS: Acetaminophen 325 MG TABLET PO PRN (03:15)
[2018-09-20 04:48] LABS: Basophils # 0.1 K/mcL (0.0-0.2); Basophils % 1.8 %; Eosinophils # 0.3 K/mcL (0.0-0.6); Eosinophils % 5.3 %; Hematocrit 34.5 % (35.3-44.9); Hemoglobin 10.8 g/dL (11.5-15.4); Immature Granulocytes % 1.1 % (0-4); Lymphocytes # 2.4 K/mcL (0.6-4.6); Lymphocytes % 42.9 %; Mean Corpuscular HGB Conc 31.3 g/dL (31.6-35.5); Mean Corpuscular Hemoglobin 26.9 pg (28.0-33.3); Mean Corpuscular Volume 85.8 fL (83.0-100.0); Mean Platelet Volume 8.8 fL (9.4-12.4); Monocytes # 0.5 K/mcL (0.0-1.3); Neutrophils # 2.3 K/mcL (1.6-8.9); Platelet Count 268 K/mcL (140-400); Red Blood Count 4.02 M/mcL (3.82-4.97); Red Cell Distribution Width 13.4 % (11.5-14.5); Segmented Neutrophils % 39.9 %
[2018-09-20 05:08] LABS: BUN/Creatinine Ratio 20 (6-26); Blood Urea Nitrogen 17 mg/dL (6-20); Calcium 8.1 mg/dL (8.6-10.3); Carbon Dioxide 25 mEq/L (23-29); Chloride 110 mEq/L (98-107); Glucose 80 mg/dL (70-105); Osmolality,Calculated 291 (280-300); Potassium 4.3 mEq/L (3.5-5.1); Sodium 140 mEq/L (136-145); eGFR For Non-African Americans > 60 (> 60)
[2018-09-20] MEDS: *HR* Heparin 5,000 UNIT/ML VIAL SQ SCH (06:25)
[2018-09-20] MEDS: Nicotine 21 MG PATCH.TD24 TD SCH (09:08)
[2018-09-20] MEDS: Methadone Oral Concentrate 50 MG/5 ML UDC PO SCH (10:01)
[2018-09-20] MEDS ORDERED: Doxycycline 100 MG CAPSULE PO SCH (12:00)
[2018-09-20 12:09] VITALS: BP 120/80
--- NOTE | 2018-09-20 13:00 | Internal Med Progress Note ---
Hospitalist Progress Note - Encounter Date of Encounter: 09/20/18 Time of Encounter: 12:57 - Subjective Interval History: Patient was seen and examined, patient is laying in bed this morning in no acute or apparent distress. States that overnight she had no fevers or chills. No current nausea or vomiting. States the pain is tolerable, has been using the Toradol prn as well as one dose of Tylenol overnight. She states overall she feels much improved from when she was initially admitted, with overall decreased pain in her right thigh. She states that the redness is steadily decreased from initial presentation. She denies any numbness or tingling around the wound or drainage site. Notes that last night, the dressing was changed per nursing. - Exam Vitals: Temp Pulse Resp BP Pulse Ox 97.9 F 70 16 120/80 96 09/20/18 11:55 09/20/18 11:55 09/20/18 11:55 09/20/18 11:55 09/20/18 11:55 Exam: General: Patient is alert, no acute distress, oriented x 3 Respiratory: Good respiratory effort. Normal breath sounds. No wheezing or crackles. Cardiovascular: Regular rate and rhythm. s1 and s2 normal No clicks, rubs, gallops, or murmurs. No pedal edema Abdomen: Abdomen is soft, nontender. Bowel sounds are present Musculoskeletal: Spontaneously moving all extremities Skin: warm, dry, intact, right hip wound bandaged, no erythema past the bandage Neuro: Alert oriented x 3 normal cranial nerves, no focal deficits - Assessment and Plan (1) Abscess of hip, right Current Visit: Yes Status: Acute Assessment and Plan: Patient presented with a deep abscess involving the right thigh region CT revealed cellulitis Patient is status post incision and drainage, day 2 Orthopedics is continuing to follow Initial wound culture on 09/17/2018 at initial presentation is positive for MRSA Blood cultures are no growth to date Patient remains afebrile with normal white blood cell Plan We will transition from IV vancomycin and Zosyn, day 4, to oral doxycycline 100 mg twice per day for a total course of 10 days. Continue to follow with orthopedics recommendations We will continue to monitor wound care (2) DVT prophylaxis Current Visit: No Status: Acute Assessment and Plan: Continue subcutaneous heparin (3) IVDU (intravenous drug user) Current Visit: Yes Status: Acute Assessment and Plan: We will continue with methadone - Time Spent with Patient Total time spent is greater than 50% in coordination of care (as documented) at patient's floor/unit and/or counseling patient: less than 15 minutes Plan of Care Discussed with: patient Internal Medicine: Result - Labs CBC & Chem 7: 09/20/18 04:26 09/20/18 04:26 Labs: Short CBC 09/20/18 Range/Units 04:26 WBC 5.7 (4.3-11.1) K/mcL Hgb 10.8 L (11.5-15.4) g/dL Hct 34.5 L (35.3-44.9) % Plt Count 268 (140-400) K/mcL Neutrophils # 2.3 (1.6-8.9) K/mcL BMP 09/20/18 04:26 Sodium 140 Potassium 4.3 Chloride 110 H Carbon Dioxide 25 BUN 17 Creatinine 0.87 Glucose 80 Calcium 8.1 L - ABG Interpretation ABG results: PT/INR, D-dimer PT 14.0 Seconds (9.4-12.1) H 09/17/18 18:53 Consult Discharge Plan - Plan
--- NOTE | 2018-09-20 15:07 | Discharge Summary ---
<Lyndsay Ingram - Last Filed: 09/20/18 15:00> - NOTES TO OUTPATIENT PROVIDER Notes to Outpatient Provider: outpatient follow up with orthopedics, You GAYTAN Sunday 09/30 or 10/03. PCP follow up in 3-5 days for outpatient re-evaluation and monitor of wound site. Orders not resulted at time of discharge: Pending orders 09/17/18 18:53 Culture,Blood [BC] Routine 09/18/18 08:55 Culture,Anaerobic [RM] Routine Culture,Wound [RM] Routine Date of Encounter: 09/20/18 Time of Encounter: 15:00 - Discharge Diagnosis (1) Abscess of hip, right Priority: Primary Status: Acute (2) DVT prophylaxis Priority: Secondary Status: Acute (3) IVDU (intravenous drug user) Priority: Secondary Status: Acute Hospital course: Ms. Davalos is a 33 year old female with history of hepatitis C, IV drug use currently on methadone presenting, with multiple history of abscesses and growth of wound MRSA in the past to the emergency department for progressively worsening right thigh abscess. Patient had progressive worsening symptoms of a right thigh abscess for one week on presentation to the emergency department. On initial presentation, patient was afebrile, tachycardic at 120, normotensive. Incision and drainage was performed initially while in the emergency department and culture was obtained. Patient was started on clindamycin. On admission, CT of the right lower extrude he was obtained which showed cellulitic changes with fat stranding. No further fistula or fluid-filled sac was notified. Patient's blood work remained unremarkable throughout her admission and stay. White blood count was within normal limits. Patient remained afebrile. Patient was started on vancomycin and Zosyn. Orthopedics was consulted, with excision and drainage and debridement performed on 08/19/2018. Following this procedure, patient tolerated oral intake well, with significant improvement in pain and discomfort. Swelling and erythema significantly decreased. Wound culture showed positive MRSA, blood cultures continue be no growth to date. IV antibiotics were stopped and patient was started on doxycycline. Doxycycline prescription will be continued for a total of a 10 day course of antibiotics. Patient will be discharged at this point in time home with clear instructions on wound management and outpatient follow-up with orthopedics in one week to 10 days. It was discussed with the patient that she needs to clean the area as well as apply appropriate dressing. Patient is in agreement and understands disposition. Patient's methadone was given while here in the hospital. For pain patient was given Tylenol and Toradol. At time of discharge patient states the pain is significant improved, patient has remained stable. Discharge discussed with: patient - Time Spent with Patient Total time spent providing and/or coordinating discharge services: Less than 30 minutes - Discharge Medications Prescriptions: cephALEXin [Keflex] 500 mg PO QID 6 Days #24 capsule Chlorhexidine Gluconate [Hibiclens] 118 ml TP Q1W 14 Days #1 liquid Doxycycline 100 mg PO BID 6 Days #12 capsule Gauze Bandage [Woundgard Gauze] 1 each TP DAILY 7 Days #7 bandage Home Medications: Methadone HCl 95 mg PO DAILY 07/14/18 [History] Chlorhexidine Gluconate [Hibiclens] 118 ml TP Q1W 14 Days #1 liquid 09/20/18 [Rx] Doxycycline 100 mg PO BID 6 Days #12 capsule 09/20/18 [Rx] Gauze Bandage [Woundgard Gauze] 1 each TP DAILY 7 Days #7 bandage 09/20/18 [Rx] cephALEXin [Keflex] 500 mg PO QID 6 Days #24 capsule 09/20/18 [Rx] Allergies/Adverse Reactions: Allergy/AdvReac Type Severity Reaction Status Date / Time sulfamethoxazole Allergy Hives Verified 09/17/18 12:18 [From Bactrim] trimethoprim [From Bactrim] Allergy Hives Verified 09/17/18 12:18 Date of admission: 09/18/18 15:11 Primary care physician: PCP NONE Consults: 09/17/18 15:49 Consult to Orthopedic Surgery [CONS] Stat Consulting Provider: [facility] Reason for Consult: abscess - likely OR for wash out Call Completed: Yes Discharging clinician: Lyndsay Ingram Anticipated date of discharge: 09/20/18 - Constitutional Vitals: Temp Pulse Resp BP Pulse Ox 97.9 F 70 16 120/80 96 09/20/18 11:55 09/20/18 11:55 09/20/18 11:55 09/20/18 11:55 09/20/18 11:55 General appearance: Present: mild distress, A&O X 3, obese Exam: General: Patient is alert, no acute distress, oriented x 3 Respiratory: Good respiratory effort. Normal breath sounds. No wheezing or crackles. Cardiovascular: Regular rate and rhythm. s1 and s2 normal No clicks, rubs, gallops, or murmurs. No pedal edema Abdomen: Abdomen is soft, nontender. Bowel sounds are present Musculoskeletal: Spontaneously moving all extremities Skin: warm, dry, intact, right hip wound bandaged, no erythema past the bandage Neuro: Alert oriented x 3 normal cranial nerves, no focal deficits - Patient Status Disposition: Home, Self-Care Condition: Good Overall status at discharge: patient is progressing back to baseline - Discharge Instructions Instructions: Wound Infection (DC) Follow Up With: [facility] [Outside] (Patient prefers to stay with the [facility]. Thank you) [facility] PAC [Physician Celery Tier] - 09/30/18 1:30 pm - Diet and Activity Activity: increase activity as tolerated Diet: advance to your usual diet <Eleazar Ibarra - Last Filed: 09/20/18 23:51> Orders not resulted at time of discharge: Pending orders 09/17/18 18:53 Culture,Blood [BC] Routine 09/18/18 08:55 Culture,Anaerobic [RM] Routine Culture,Wound [RM] Routine Date of Encounter: 09/20/18 - Discharge Diagnosis (1) Tobacco dependence Status: Chronic (2) Abscess of hip, right Status: Acute (3) Opioid dependence Status: Chronic Qualifiers: Substance use status: in remission Qualified Code(s): F11.21 - Opioid dependence, in remission Hospital course: Ms. Davalos is a 33 year old female - Time Spent with Patient Total time spent providing and/or coordinating discharge services: Date of admission: 09/18/18 15:11 Primary care physician: PCP NONE Consults: 09/17/18 15:49 Consult to Orthopedic Surgery [CONS] Stat Consulting Provider: [facility]oped[facility] Reason for Consult: abscess - likely OR for wash out Call Completed: Yes - Constitutional Vitals: Temp Pulse Resp BP Pulse Ox 97.9 F 70 16 120/80 96 09/20/18 11:55 09/20/18 11:55 09/20/18 11:55 09/20/18 11:55 09/20/18 11:55 - Attending Attestation I have examined this patient [id number] and my medical decision-making was reviewed with the Resident Physician. I agree with the documented findings, disposition and treatment plan as described except to the extent set forth below. She will be discharged on Doxy, Keflex, Hibiclense. Although Doxy has been prescribed, last time was 6 months ago. Based on sensitivities of this MRSA in the wound infection. it will need prescribed again to finish total of 10 days therapy. Unfortunately, MRSA in wound is resistant to Bactrim and Clindamycin. Keflex will be added for improved Gram Positive coverage as there is S aureus growing that is not listed as MRSA but this is a prelim reading. Hibiclense to be used 1-2 times per week with follow-up with primary care. Addendum entered and electronically signed by Lyndsay Ingram 09/20/18 16:03: Update: patient will be discharged on Keflex and doxycycline. Orthopedic appt made for patient in one week.
[2018-09-20] MEDS ORDERED: Aminoglycoside Consult 1 EACH MC ONE (16:07)
== END 2018-09-20 16:08 | disposition home or self-care (01) | DRG 364 ==
LOC: 3ANU 10:39 → EMEROOARM 10:39 → 3ANU 16:30 → SUATTDRO 09-18 15:11
PROVIDERS: ADMIT Internal Medicine Cardiovascular Disease; ATTEND Student in an Organized Health Care Education/Training Program

== ENCOUNTER 2021-06-27 20:23 | Observation (INO) ==
[2021-06-28 04:10] LABS: Basophils # 0.1 K/mcL (0.0-0.2); Basophils % 1.3 %; Eosinophils # 0.3 K/mcL (0.0-0.6); Eosinophils % 2.3 %; Hemoglobin 7.5 g/dL (11.5-15.4); Immature Granulocytes % 0.5 % (0-4); Lymphocytes # 2.3 K/mcL (0.6-4.6); Lymphocytes % 20.4 %; Mean Corpuscular HGB Conc 31.3 g/dL (31.6-35.5); Mean Corpuscular Hemoglobin 26.5 pg (28.0-33.3); Mean Corpuscular Volume 84.8 fL (83.0-100.0); Monocytes % 8.7 %; Neutrophils # 7.4 K/mcL (1.6-8.9); Platelet Count 702 K/mcL (140-400); Red Blood Count 2.83 M/mcL (3.82-4.97); Red Cell Distribution Width 14.2 % (11.5-14.5); Segmented Neutrophils % 66.8 %; White Blood Count 11.1 K/mcL (4.3-11.1)
[2021-06-28 04:16] LABS: Bilirubin,Urine Negative (Negative); Blood,Urine Negative (Negative); Clarity,Urine Clear (Clear); Color,Urine Light-Yellow (Yellow); Glucose,Urine (UA) Normal (Normal); Ketones,Urine Negative (Negative); Leukocyte Esterase,Urine Moderate (Negative); Mucus,Urine Few per lpf (None-Few); Nitrite,Urine Negative (Negative); Protein,Urine Negative (Neg-Trace); Specific Gravity,Urine 1.012 (1.010-1.025); Squamous Epithelial Cell,Urine Few per hpf (None-Few); Urobilinogen,Urine Normal (Normal); WBC,Urine 15-30 per hpf (0-3)
[2021-06-28 04:32] LABS: Alanine Aminotransferase 28 Units/L (7-52); Albumin 2.6 g/dL (3.5-5.7); Alkaline Phosphatase 82 Units/L (34-104); Aspartate Amino Transferase 18 Units/L (13-39); BUN/Creatinine Ratio 13 (6-26); Bilirubin,Direct 0.2 mg/dL (0.0-0.2); Bilirubin,Indirect 0.3 mg/dL (0.0-1.0); Bilirubin,Total 0.5 mg/dL (0.3-1.0); Blood Urea Nitrogen 7 mg/dL (6-20); C-Reactive Protein 101 mg/L (Less than 10); Calcium 8.6 mg/dL (8.6-10.3); Carbon Dioxide 24 mEq/L (23-29); Chloride 104 mEq/L (98-107); Glucose 97 mg/dL (70-105); Osmolality,Calculated 280 (280-300); Potassium 3.8 mEq/L (3.5-5.1); Sodium 136 mEq/L (136-145); eGFR For African Americans > 60 (> 60); eGFR For Non-African Americans > 60 (> 60)
[2021-06-28 04:33] LABS: Albumin/Globulin Ratio 0.6 (1.1-2.2); Globulin 4.7 g/dL (2.4-3.5); Total Protein 7.3 g/dL (6.4-8.9)
[2021-06-28] MEDS ORDERED: Morphine Sulfate 2 MG/ML SYRINGE IVP ONE ×2 (06:56→12:11)
[2021-06-28] MEDS ORDERED: *HR* LORazepam 2 MG/ML VIAL IVP ONE (12:12)
[2021-06-28] MEDS ORDERED: Ondansetron 4 MG/2 ML VIAL IVP PRN (14:39)
[2021-06-28] MEDS ORDERED: Naloxone 0.4 MG/ML INJ IVP PRN (14:39)
[2021-06-28 16:06] LABS: Amphetamine Screen,Urine Negative ng/mL (Cutoff=1000); Barbiturate Screen,Urine Negative ng/mL (Cutoff=200); Benzodiazepines Screen,Urine Negative ng/mL (Cutoff=200); Cannabinoid Screen,Urine Negative ng/mL (Cutoff = 50); Cocaine Screen,Urine Negative ng/mL (Cutoff= 300); Opiate Screen,Urine Negative ng/mL (Cutoff=300); Phencyclidine Screen,Urine Negative ng/mL (Cutoff=25)
[2021-06-28] MEDS: Gabapentin 100 MG CAPSULE PO SCH ×2 (16:18→20:06)
[2021-06-28] MEDS: *HR* HYDROmorphone 2 MG TABLET PO SCH ×2 (16:18→20:05)
[2021-06-28] MEDS ORDERED: *HR* Heparin 5,000 UNIT/ML VIAL SQ SCH (18:00)
[2021-06-28 19:28] VITALS: BP 127/77; PULSE 102; TEMP 97.8; O2SAT 97
[2021-06-28] MEDS ORDERED: Vancomycin 1,250 MG/262.5 ML IV.SOLN IVPB SCH (20:00)
== END 2021-06-28 20:20 | disposition short-term general hospital (02) ==
LOC: EMEROOARM 20:23 → 3BNU 20:23
PROVIDERS: ADMIT Internal Medicine; ATTEND Internal Medicine